=== PATIENT | female | born 1950 | race Caucasian/White ===

== ENCOUNTER 2016-03-30 12:59 | Emergency (ER) | payer MEDICARE, BC ==
[2016-03-30 13:07] VITALS: BP 140/83; RESP 30; TEMP 97.8
--- NOTE | 2016-03-30 13:13 | ED ---
General Adult HPI - General Chief complaint: Recheck/Abnormal Lab/Rx Stated complaint: tremors Time Seen by Provider: 03/30/16 13:13 Source: patient, EMS, RN notes reviewed, old records reviewed Mode of arrival: EMS Limitations: no limitations - History of Present Illness Initial comments: This is a 65-year-old female her for evaluation. Patient presents today for evaluation of stress. Stress reaction, patient has significant history her mother's illness. Patient denies homicidal or suicidal. No history of seizure, patient with increased stress reaction, history obtained from EMS - Related Data Home Medications Medication Instructions Recorded Confirmed DULoxetine HCL [Cymbalta] 120 tab PO DAILY 10/14/14 03/30/16 Dextroamphetamine/Amphetamine 45 tab PO DAILY 10/14/14 03/30/16 [Adderall] Etodolac [Lodine] 400 mg PO BID 10/14/14 03/30/16 Minocycline [Minocin] 50 mg PO DIRECTED 10/14/14 03/30/16 traZODone HCL [Oleptro ER] 75 - 150 tab PO HS 10/14/14 03/30/16 ALPRAZolam [Xanax] 0.25 mg PO BID PRN 03/30/16 03/30/16 Gabapentin [Neurontin] 900 mg PO BID 03/30/16 03/30/16 Omeprazole [PriLOSEC] 20 mg PO AC-BRKFST 03/30/16 03/30/16 lamoTRIgine [LaMICtal] 25 mg PO BID 03/30/16 03/30/16 Allergies Allergy/AdvReac Type Severity Reaction Status Date / Time Iodinated Contrast Media - Allergy Unknown Verified 03/30/16 14:15 Oral and venom-wasp [wasp venom] AdvReac Rash/Hives Verified 03/30/16 14:15 Review of Systems ROS Statement: Those systems with pertinent positive or pertinent negative responses have been documented in the HPI. ROS Other: All systems not noted in ROS Statement are negative. Past Medical History Additional Past Medical History / Comment(s): closed head injury History of Any Multi-Drug Resistant Organisms: None Reported Past Surgical History: Joint Replacement Past Psychological History: ADD/ADHD, Anxiety, Depression Smoking Status: Never smoker Past Alcohol Use History: None Reported Past Drug Use History: None Reported General Exam Limitations: no limitations General appearance: anxious Head exam: Present: atraumatic, normocephalic, normal inspection Eye exam: Present: normal appearance, PERRL, EOMI. Absent: scleral icterus, conjunctival injection, periorbital swelling ENT exam: Present: normal exam, mucous membranes moist Neck exam: Present: normal inspection. Absent: tenderness, meningismus, lymphadenopathy Respiratory exam: Present: normal lung sounds bilaterally. Absent: respiratory distress, wheezes, rales, rhonchi, stridor Cardiovascular Exam: Present: regular rate, normal rhythm, normal heart sounds. Absent: systolic murmur, diastolic murmur, rubs, gallop, clicks GI/Abdominal exam: Present: soft, normal bowel sounds. Absent: distended, tenderness, guarding, rebound, rigid Extremities exam: Present: normal inspection, full ROM, normal capillary refill. Absent: tenderness, pedal edema, joint swelling, calf tenderness Back exam: Present: normal inspection Neurological exam: Present: alert, oriented X3, CN II-XII intact Psychiatric exam: Present: normal affect, normal mood Skin exam: Present: warm, dry, intact, normal color. Absent: rash Course Vital Signs 03/30/16 03/30/16 13:02 13:34 Temperature 97.8 F Pulse Rate 80 122 H Respiratory 30 H Rate Blood Pressure 140/83 O2 Sat by Pulse 96 Oximetry - Reevaluation(s) Reevaluation #1: 03/30/16 14:53 Spent greater than 15 minutes with patient, patient consulted regarding tremors and stress, Medical Decision Making - Medical Decision Making 65 female here for evaluation, has psychiatric history, patient coming in for evaluation of full-body course Wally, tremors or stopped with benzodiazepines at this time, patient's alert gabriela of conversation, not homicidal or suicidal okay for discharge home - Lab Data Lab Results 03/30/16 Range/Units 13:09 POC Glucose (mg/dL) 110 H (75-99) mg/dL POC Glu [employer] Lora Mahoney Disposition Clinical Impression: Tremors of nervous system, Grief Disposition: HOME SELF-CARE Condition: Good Instructions: Grief and Loss (ED), Tremors (ED) Referrals: Luiz Gifford MD [Primary Care Provider] - 1-2 days
[2016-03-30] MEDS ORDERED: LORazepam 2 MG/ML SYRINGE IV STA (13:15)
[2016-03-30] MEDS ORDERED: SODIUM CHLORIDE 0.9% 1,000 ML IV STA (13:15)
[2016-03-30 13:29] LABS: Glucose,Whole Blood 110 mg/dL (75-99)
[2016-03-30 13:34] VITALS: PULSE 122
[2016-03-30] MEDS ORDERED: DIAZEPAM 5 MG/ML 2 ML SYRINGE IVP STA (13:59)
== END 2016-03-30 15:55 | disposition home or self-care (01) ==
LOC: EC 12:59
DX: R25.1 Tremor, unspecified (principal); F43.21 Adjustment disorder with depressed mood; F41.9 Anxiety disorder, unspecified; F32.9 Major depressive disorder, single episode, unspecified; Z79.899 Other long term (current) drug therapy; Z91.041 Radiographic dye allergy status; F90.9 Attention-deficit hyperactivity disorder, unspecified type
CPT/HCPCS: 36415; 99284; 96374; 96375; 96361; J2060

== ENCOUNTER 2016-05-21 18:15 | Emergency (ER) | payer MEDICARE, BC ==
[2016-05-21 18:42] VITALS: TEMP 97.1
[2016-05-21] MEDS ORDERED: KETOROLAC 60 MG/2 ML VIAL IM STA (19:48)
[2016-05-21] MEDS ORDERED: LORazepam 1 MG TAB PO STA (19:48)
--- NOTE | 2016-05-21 20:09 | ED ---
Skin/Abscess/FB HPI - General Chief complaint: Skin/Abscess/Foreign Body Stated complaint: pain, Shingles,tingling Time Seen by Provider: 05/21/16 19:25 Source: family, RN notes reviewed Mode of arrival: wheelchair Limitations: no limitations - History of Present Illness Initial comments: 64-year-old female presents to the emergency department with a chief complaint of anxiety. The patient developed shingles about a week and a half ago. Patient states that she has continued to have pain over the area where the shingles was it's a burning type pain. Patient states that she is out of her pain medication. Patient states that she also has developed some neck discomfort associated with this as well. Patient states that for the shingles. Did have a fall where she hit her neck she is wondering if maybe that for neck pain is from [place] is just related to the shingles. Patient has been diagnosed with anxiety past does have a lot of stressors daily as well. Patient states she just did not know where else to go to help with her anxiety and this pain so she thought that she should be evaluated.Patient denies any recent fever, chills, shortness of breath, chest pain, back pain, abdominal pain , nausea vomiting, numbness or tingling, dysuria or hematuria, constipation or diarrhea, headaches or visual changes, or any other current symptoms. - Related Data Home Medications Medication Instructions Recorded Confirmed DULoxetine HCL [Cymbalta] 120 tab PO DAILY 10/14/14 05/21/16 Dextroamphetamine/Amphetamine 45 tab PO DAILY 10/14/14 05/21/16 [Adderall] Etodolac [Lodine] 400 mg PO BID 10/14/14 05/21/16 traZODone HCL [Oleptro ER] 75 - 150 tab PO HS 10/14/14 05/21/16 ALPRAZolam [Xanax] 0.25 mg PO BID PRN 03/30/16 05/21/16 Gabapentin [Neurontin] 900 mg PO BID 03/30/16 05/21/16 Omeprazole [PriLOSEC] 20 mg PO AC-BRKFST 03/30/16 05/21/16 lamoTRIgine [LaMICtal] 25 mg PO BID 03/30/16 05/21/16 Cyclobenzaprine [Flexeril] 10 mg PO DAILY PRN 05/21/16 05/21/16 Previous Rx's Medication Instructions Recorded Hydrocodone/Acetaminophen [Tumtum 1 each PO Q6HR PRN #20 tab 05/21/16 5-325] Allergies Allergy/AdvReac Type Severity Reaction Status Date / Time Iodinated Contrast Media - Allergy Unknown Verified 05/21/16 19:39 Oral and venom-wasp [wasp venom] AdvReac Rash/Hives Verified 05/21/16 19:39 Review of Systems ROS Statement: Those systems with pertinent positive or pertinent negative responses have been documented in the HPI. ROS Other: All systems not noted in ROS Statement are negative. Past Medical History Additional Past Medical History / Comment(s): closed head injury, shingles History of Any Multi-Drug Resistant Organisms: None Reported Past Surgical History: Joint Replacement Past Psychological History: ADD/ADHD, Anxiety, Depression, Panic Disorder Smoking Status: Never smoker Past Alcohol Use History: None Reported Past Drug Use History: None Reported General Exam Limitations: no limitations General appearance: alert, anxious Head exam: Present: atraumatic, normocephalic, normal inspection Eye exam: Present: normal appearance, PERRL, EOMI. Absent: scleral icterus, conjunctival injection, periorbital swelling ENT exam: Present: normal exam, mucous membranes moist Neck exam: Present: normal inspection. Absent: tenderness, meningismus, lymphadenopathy Respiratory exam: Present: normal lung sounds bilaterally. Absent: respiratory distress, wheezes, rales, rhonchi, stridor Cardiovascular Exam: Present: regular rate, normal rhythm, normal heart sounds. Absent: systolic murmur, diastolic murmur, rubs, gallop, clicks Extremities exam: Present: normal inspection, full ROM, normal capillary refill. Absent: tenderness, pedal edema, joint swelling, calf tenderness Back exam: Present: normal inspection Neurological exam: Present: alert, oriented X3, CN II-XII intact. Absent: motor sensory deficit Psychiatric exam: Present: anxious Skin exam: Present: warm, dry, intact, other (Healing line of blisters most likely related to shingles observed.) Course Vital Signs 05/21/16 05/21/16 18:36 23:57 Temperature 97.1 F L Pulse Rate 106 H 89 Respiratory 22 16 Rate Blood Pressure 120/67 131/70 O2 Sat by Pulse 100 99 Oximetry - Reevaluation(s) Reevaluation #1: 05/21/16 21:37 On further conversation with the pain she states that she has not been able to be out of bed very often for the last 2 days. She states she's not been eating well. She's not been caring for her. At this time patient continues to be anxious and family member states that this has been ever since she heard the news about her mother. At this time we will have psych evaluate the patient. Medical Decision Making - Medical Decision Making 65-year-old female presents with what appears to be anxiety coupled with pain. At this patient just does not seem to be caring for self patient appears to be in severe anxiety. At this time patient does not appear to Making medical emergencies. This time patient is cleared to be evaluated by psychiatry. Patient was evaluated by psychiatry here. At this time she is discharged home with follow-up with her psychiatrist Dr. Lopez. We did discuss continuing home medications. We do give her something for her discomfort. Patient in agreement with the plan. All questions have been answered. She'll be discharged. - Radiology Data Radiology results: report reviewed, image reviewed Disposition Clinical Impression: Anxiety, Herpes zoster complication, Left axillary pain Disposition: HOME SELF-CARE Condition: Stable Instructions: Anxiety (ED) Additional Instructions: Please use medication as discussed. Please follow up with family doctor if symptoms have not improved over the next two days. Please return to the emergency room if your symptoms increase or worsen or for any other concerns. Prescriptions: Hydrocodone/Acetaminophen [Tumtum 5-325] 1 each PO Q6HR PRN #20 tab PRN Reason: Pain Referrals: Luiz Gifford MD [Primary Care Provider] - 1-2 days Tj Meyer DO [Medical Doctor] - 1-2 days Time of Disposition: 23:59
[2016-05-21] MEDS: HYDROcodone/APAP 5-325MG 1 EACH TAB PO STA ×2 (20:29→20:37)
--- NOTE | 2016-05-21 21:19 | CT ---
EXAMINATION TYPE: CT cervical spine wo con DATE OF EXAM: 05/21/2016 9:06 PM COMPARISON: NONE HISTORY: PT STATES OF NECK PAIN AND LEFT ARM NUMBNESS. CT DLP: 364.0 mGycm Automated exposure control for dose reduction was used. TECHNIQUE: CT scan of the cervical spine is obtained without contrast, axial images are obtained, sa gittal and coronal reformatted images are also reviewed. FINDINGS: The cervical vertebra have normal alignment. There is degenerative disc space narrowing in the mid and lower cervical spine with spurring of the endplates. There is hypertrophic facet arthropa thy throughout the cervical spine. Posterior elements are intact. The skull base is intact. There is no evidence for fracture. IMPRESSION: Multilevel spondylosis. No fracture seen.
[2016-05-21 23:57] VITALS: BP 131/70; PULSE 89; RESP 16
== END 2016-05-22 00:05 | disposition home or self-care (01) ==
LOC: EC 18:15
DX: B02.8 Zoster with other complications (principal); M79.622 Pain in left upper arm; F41.0 Panic disorder [episodic paroxysmal anxiety]; F90.9 Attention-deficit hyperactivity disorder, unspecified type; F32.9 Major depressive disorder, single episode, unspecified; Z53.20 Procedure and treatment not carried out because of patient's decision for unspecified reasons; Z79.899 Other long term (current) drug therapy; Z91.038 Other insect allergy status; Z91.041 Radiographic dye allergy status
CPT/HCPCS: 72125; 99283

== ENCOUNTER 2016-08-21 17:07 | Inpatient (IN) | payer MEDICARE, BC ==
[2016-08-21] MEDS ORDERED: ACETAMINOPHEN TAB 500 MG TAB PO STA (17:54)
[2016-08-21] MEDS ORDERED: LORazepam 1 MG TAB PO STA (17:55)
--- NOTE | 2016-08-21 17:57 | ED ---
General Adult HPI - General Source: patient, EMS, RN notes reviewed Mode of arrival: EMS Limitations: no limitations <Hollis Sneed - Last Filed: 08/21/16 19:21> <Hollis Conley - Last Filed: 08/22/16 00:23> - General Chief complaint: Psychiatric Symptoms Stated complaint: Mental Health Time Seen by Provider: 08/21/16 17:10 - History of Present Illness Initial comments: This is a 66-year-old female who presents emergency Department under a petition because she made some remark about wanting to take finals and it was interpreted that she wanted to harm her self. Sister told someone that she did threaten recently to cut her throat. Patient states she made that statement over a month ago and she was just frustrated and didn't really mean it. Patient denies any suicidal or homicidal ideations. Patient states she's just extremely upset because she is not currently being allowed to see her 97-year- old mother and no one is helping her. Patient also has a fever but she doesn't know why she states she has a cough but that is been chronic patient denies any difficulty breathing or shortness of breath. Patient denies any skin lesions or rashes. Patient denies any dysuria hematuria urinary frequency. Patient denies any abdominal pain patient denies nausea vomiting or diarrhea. (Hollis Sneed) - Related Data Home Medications Medication Instructions Recorded Confirmed DULoxetine HCL [Cymbalta] 120 tab PO DAILY 10/14/14 08/21/16 Dextroamphetamine/Amphetamine 30 mg PO BID 10/14/14 08/21/16 [Adderall] Etodolac [Lodine] 400 mg PO AC-BID 10/14/14 08/21/16 ALPRAZolam [Xanax] 0.25 mg PO BID PRN 03/30/16 08/21/16 Gabapentin [Neurontin] 600 mg PO TID 03/30/16 08/21/16 Omeprazole [PriLOSEC] 20 mg PO AC-BRKFST 03/30/16 08/21/16 Minocycline HCl [Minocin] 50 mg PO DAILY 08/21/16 08/21/16 traZODone HCL 150 mg PO HS 08/21/16 08/21/16 Allergies Allergy/AdvReac Type Severity Reaction Status Date / Time Iodinated Contrast Media - Allergy Unknown Verified 08/21/16 17:16 Oral and venom-wasp [wasp venom] AdvReac Rash/Hives Verified 08/21/16 17:16 Review of Systems ROS Other: All systems not noted in ROS Statement are negative. <SneedHollis - Last Filed: 08/21/16 19:21> ROS Other: All systems not noted in ROS Statement are negative. <Hollis Conley - Last Filed: 08/22/16 00:23> ROS Statement: Those systems with pertinent positive or pertinent negative responses have been documented in the HPI. Past Medical History Additional Past Medical History / Comment(s): closed head injury, shingles History of Any Multi-Drug Resistant Organisms: None Reported Past Surgical History: Joint Replacement Past Psychological History: ADD/ADHD, Anxiety, Depression, Panic Disorder, PTSD Smoking Status: Never smoker Past Alcohol Use History: None Reported Past Drug Use History: None Reported <Hollis Sneed - Last Filed: 08/21/16 19:21> General Exam Limitations: no limitations <Hollis Sneed - Last Filed: 08/21/16 19:21> <Hollis Conley - Last Filed: 08/22/16 00:23> - General Exam Comments Initial Comments: GENERAL: Patient is well-developed and well-nourished. Patient is nontoxic and well- hydrated and is in no acute distress. ENT: Neck is soft and supple. No significant lymphadenopathy is noted. Oropharynx is clear. Moist mucous membranes. Neck has full range of motion without eliciting any pain. EYES: The sclera were anicteric and conjunctiva were pink and moist. Extraocular movements were intact and pupils were equal round and reactive to light. Eyelids were unremarkable. PULMONARY: Unlabored respirations. Good breath sounds bilaterally. No audible rales rhonchi or wheezing was noted. CARDIOVASCULAR: There is a regular rate and rhythm without any murmurs gallops or rubs. ABDOMEN: Soft and nontender with normal bowel sounds. No palpable organomegaly was noted. There is no palpable pulsatile mass. SKIN: Skin is clear with no lesions or rashes and otherwise unremarkable. NEUROLOGIC: Patient is alert and oriented x3. Cranial nerves II through XII are grossly intact. Motor and sensory are also intact. Normal speech, volume and content. Symmetrical smile. Cerebellar exam grossly intact. MUSCULOSKELETAL: Normal extremities with adequate strength and full range of motion. No lower extremity swelling or edema. No calf tenderness. LYMPHATICS: No significant lymphadenopathy is noted PSYCHIATRIC: Patient denies suicidal or homicidal ideations. Patient is just agitated at this time and upset because she wants to see her mother and this is just getting in the way of her moving in that direction. (Hollis Sneed) Course <Hollis Sneed - Last Filed: 08/21/16 19:21> <Hollis Conley - Last Filed: 08/22/16 00:23> Vital Signs 08/21/16 08/21/16 08/21/16 17:10 20:21 23:58 Temperature 101.3 F H 99.5 F 99.3 F Pulse Rate 105 H 116 H 110 H Respiratory 18 18 18 Rate Blood Pressure 147/78 116/53 139/71 O2 Sat by Pulse 96 99 97 Oximetry - Reevaluation(s) Reevaluation #1: 08/22/16 00:22 Patient medically clear for psychiatric evaluation lab work x-ray are negative ( Hollis Conley) Medical Decision Making <Hollis Sneed - Last Filed: 08/21/16 19:21> - Lab Data Result diagrams: 08/21/16 20:13 08/21/16 20:13 - Radiology Data Radiology results: report reviewed (Chest x-ray is negative for acute disease), image reviewed <Hollis Conley - Last Filed: 08/22/16 00:23> - Medical Decision Making Patient's care will be taking over by Dr. Chapman At 7 PM (Hollis Sneed) 62 for female seen and evaluated by psychiatry, patient will be admitted for psychiatric evaluation and treatment (Hollis Conley) - Lab Data Lab Results 08/21/16 08/21/16 08/21/16 Range/Units 17:21 20:13 20:13 WBC (3.8-10.6) k/uL RBC (3.80-5.40) m/uL Hgb (11.4-16.0) gm/dL Hct (34.0-46.0) % MCV (80.0-100.0) fL MCH (25.0-35.0) pg MCHC (31.0-37.0) g/dL RDW (11.5-15.5) % Plt Count (150-450) k/uL Neutrophils % % Lymphocytes % % Monocytes % % Eosinophils % % Basophils % % Neutrophils # (1.3-7.7) k/uL Lymphocytes # (1.0-4.8) k/uL Monocytes # (0-1.0) k/uL Eosinophils # (0-0.7) k/uL Basophils # (0-0.2) k/uL Sodium 140 (137-145) mmol/L Potassium 3.7 (3.5-5.1) mmol/L Chloride 107 (98-107) mmol/L Carbon Dioxide 22 (22-30) mmol/L Anion Gap 11 mmol/L BUN 17 (7-17) mg/dL Creatinine 0.95 (0.52-1.04) mg/dL Est GFR (MDRD) Af Amer >60 (>60 ml/min/1.73 sqM) Est GFR (MDRD) Non-Af 59 (>60 ml/min/1.73 sqM) Glucose 108 H (74-99) mg/dL Calcium 9.4 (8.4-10.2) mg/dL Phosphorus 3.0 (2.5-4.5) mg/dL Magnesium 2.1 (1.6-2.3) mg/dL Total Bilirubin 1.0 (0.2-1.3) mg/dL AST 20 (14-36) U/L ALT 13 (9-52) U/L Alkaline Phosphatase 96 (38-126) U/L Total Creatine Kinase 57 (30-135) U/L CK-MB (CK-2) 0.7 (0.0-2.4) ng/mL CK-MB (CK-2) Rel Index 1.2 Total Protein 6.4 (6.3-8.2) g/dL Albumin 3.7 (3.5-5.0) g/dL Urine Color Yellow Urine Appearance Clear (Clear) Urine pH 5.5 (5.0-8.0) Ur Specific [place] 1.022 (1.001-1.035) Urine Protein Trace H (Negative) Urine Glucose (UA) Negative (Negative) Urine Ketones 1+ H (Negative) Urine Blood Negative (Negative) Urine Nitrite Negative (Negative) Urine Bilirubin 4+ H (Negative) Urine Urobilinogen 2.0 (<2.0) mg/dL Ur Leukocyte Esterase Small H (Negative) Urine RBC 1 (0-5) /hpf Urine WBC 4 (0-5) /hpf Ur Squamous Epith Cells 1 (0-4) /hpf Urine Bacteria Rare H (None) /hpf Urine Mucus Occasional H (None) /hpf Salicylates <1.0 mg/dL Urine Opiates Screen Not Detected (NotDetected) Ur Oxycodone Screen Not Detected (NotDetected) Urine Methadone Screen Not Detected (NotDetected) Ur Propoxyphene Screen Not Detected (NotDetected) Acetaminophen <10.0 ug/mL Ur Barbiturates Screen Not Detected (NotDetected) U Tricyclic Antidepress Not Detected (NotDetected) Ur Phencyclidine Scrn Not Detected (NotDetected) Ur Amphetamines Screen Detected H (NotDetected) U Methamphetamines Scrn Not Detected (NotDetected) U Benzodiazepines Scrn Not Detected (NotDetected) Urine Cocaine Screen Not Detected (NotDetected) U Marijuana (THC) Screen Not Detected (NotDetected) Serum Alcohol <10 mg/dL 08/21/16 Range/Units 20:13 WBC 4.8 (3.8-10.6) k/uL RBC 4.42 (3.80-5.40) m/uL Hgb 14.1 (11.4-16.0) gm/dL Hct 40.5 (34.0-46.0) % MCV 91.6 (80.0-100.0) fL MCH 31.9 (25.0-35.0) pg MCHC 34.9 (31.0-37.0) g/dL RDW 13.2 (11.5-15.5) % Plt Count 225 (150-450) k/uL Neutrophils % 55 % Lymphocytes % 36 % Monocytes % 7 % Eosinophils % 1 % Basophils % 1 % Neutrophils # 2.6 (1.3-7.7) k/uL Lymphocytes # 1.7 (1.0-4.8) k/uL Monocytes # 0.3 (0-1.0) k/uL Eosinophils # 0.0 (0-0.7) k/uL Basophils # 0.0 (0-0.2) k/uL Sodium (137-145) mmol/L Potassium (3.5-5.1) mmol/L Chloride (98-107) mmol/L Carbon Dioxide (22-30) mmol/L Anion Gap mmol/L BUN (7-17) mg/dL Creatinine (0.52-1.04) mg/dL Est GFR (MDRD) Af Amer (>60 ml/min/1.73 sqM) Est GFR (MDRD) Non-Af (>60 ml/min/1.73 sqM) Glucose (74-99) mg/dL Calcium (8.4-10.2) mg/dL Phosphorus (2.5-4.5) mg/dL Magnesium (1.6-2.3) mg/dL Total Bilirubin (0.2-1.3) mg/dL AST (14-36) U/L ALT (9-52) U/L Alkaline Phosphatase (38-126) U/L Total Creatine Kinase (30-135) U/L CK-MB (CK-2) (0.0-2.4) ng/mL CK-MB (CK-2) Rel Index Total Protein (6.3-8.2) g/dL Albumin (3.5-5.0) g/dL Urine Color Urine Appearance (Clear) Urine pH (5.0-8.0) Ur Specific [place] (1.001-1.035) Urine Protein (Negative) Urine Glucose (UA) (Negative) Urine Ketones (Negative) Urine Blood (Negative) Urine Nitrite (Negative) Urine Bilirubin (Negative) Urine Urobilinogen (<2.0) mg/dL Ur Leukocyte Esterase (Negative) Urine RBC (0-5) /hpf Urine WBC (0-5) /hpf Ur Squamous Epith Cells (0-4) /hpf Urine Bacteria (None) /hpf Urine Mucus (None) /hpf Salicylates mg/dL Urine Opiates Screen (NotDetected) Ur Oxycodone Screen (NotDetected) Urine Methadone Screen (NotDetected) Ur Propoxyphene Screen (NotDetected) Acetaminophen ug/mL Ur Barbiturates Screen (NotDetected) U Tricyclic Antidepress (NotDetected) Ur Phencyclidine Scrn (NotDetected) Ur Amphetamines Screen (NotDetected) U Methamphetamines Scrn (NotDetected) U Benzodiazepines Scrn (NotDetected) Urine Cocaine Screen (NotDetected) U Marijuana (THC) Screen (NotDetected) Serum Alcohol mg/dL Disposition <Hollis Sneed - Last Filed: 08/21/16 19:21> <Hollis Conley - Last Filed: 08/22/16 00:23> Clinical Impression: Depression, Suicidal ideation Disposition: TRANSFER TO PSYCH HOSP/UNIT Condition: Fair Referrals: Luiz Gifford MD [Primary Care Provider] - 1-2 days
--- NOTE | 2016-08-21 18:13 | XR ---
EXAMINATION TYPE: XR chest 2V DATE OF EXAM: 08/21/2016 COMPARISON: NONE HISTORY: Fever TECHNIQUE: Frontal and lateral views of the chest are obtained. FINDINGS: Heart and mediastinum are normal. Lungs are clear. Diaphragm is normal. Bony thorax is int act. IMPRESSION: Normal chest
[2016-08-21 18:50] LABS: Appearance,Urine Clear (Clear); Bacteria,Urine Rare /hpf; Bilirubin,Urine 4+ (Negative); Glucose,Urine (UA) Negative (Negative); Ketones,Urine 1+ (Negative); Leukocyte Esterase,Urine Small (Negative); Mucus,Urine Occasional /hpf; Nitrite,Urine Negative (Negative); PH, Urine 5.5 (5.0-8.0); Particle Count 4893; Protein,Urine Trace (Negative); RBC,Urine 1 /hpf (0-5); Specific Gravity,Urine 1.022 (1.001-1.035); Squamous Epithelial Cell,Urine 1 /hpf (0-4); UA Billing (MACRO vs. MICRO) MICRO; WBC,Urine 4 /hpf (0-5)
[2016-08-21 20:27] LABS: Basophils % (A) 1 %; Eosinophils % (A) 1 %; HCT 40.5 % (34.0-46.0); HDW 2.14; HGB 14.1 gm/dL (11.4-16.0); Luc # (Auto) 0.08; Luc % (Auto) 2; Lymphocytes # (A) 1.7 k/uL (1.0-4.8); Lymphocytes % (A) 36 %; MCH 31.9 pg (25.0-35.0); MCHC 34.9 g/dL (31.0-37.0); MCV 91.6 fL (80.0-100.0); Mean Platelet Volume 8.5; Monocytes # (A) 0.3 k/uL (0-1.0); Monocytes % (A) 7 %; Neutrophils # (A) 2.6 k/uL (1.3-7.7); Neutrophils % (A) 55 %; RBC 4.42 m/uL (3.80-5.40); RDW 13.2 % (11.5-15.5); WBC 4.8 k/uL (3.8-10.6); WBC (Perox) 4.71
[2016-08-21 20:38] LABS: ALT 13 U/L (9-52); AST 20 U/L (14-36); Acetaminophen <10.0 ug/mL; Alcohol <10 mg/dL; Alkaline Phosphatase 96 U/L (38-126); Anion Gap 11 mmol/L; Blood Urea Nitrogen 17 mg/dL (7-17); Calcium 9.4 mg/dL (8.4-10.2); Carbon Dioxide 22 mmol/L (22-30); Chloride 107 mmol/L (98-107); Glucose 108 mg/dL (74-99); Magnesium 2.1 mg/dL (1.6-2.3); Non-African American GFR(MDRD) 59 (>60 ml/min/1.73 sqM); Potassium 3.7 mmol/L (3.5-5.1); Salicylate <1.0 mg/dL; Sodium 140 mmol/L (137-145); Total Protein 6.4 g/dL (6.3-8.2)
[2016-08-21 20:55] LABS: Creatine Kinase MB 0.7 ng/mL (0.0-2.4)
[2016-08-22] MEDS ORDERED: CYCLOBENZAPRINE 10 MG TAB PO STA
[2016-08-22] MEDS ORDERED: MAGNESIUM HYDROXIDE 2,400 MG/10 ML CUP PO PRN (02:30)
[2016-08-22] MEDS ORDERED: MAG HYDROX/AL HYDROX/SIMETH 30 ML CUP PO PRN (02:30)
[2016-08-22] MEDS: OLANZapine ODT 5 MG TAB PO PRN ×3 (02:46→18:25)
[2016-08-22] MEDS: LORazepam 1 MG TAB PO PRN ×3 (02:47→18:25)
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
--- NOTE | 2016-08-22 13:23 | P.MDCNMH ---
History of Present Illness H&P Date: 08/22/16 Chief Complaint: Medical management This is a 66-year-old female patient of Dr. Gifford with a past medical history of gastroesophageal reflux disease, ADHD, closed head injury, shingles, anxiety, depression and PTSD. Patient gives history that she has had ongoing difficulty taking care of her mother who is 97 years old with dementia and is living in an adult foster senior living. She has been following with Dr. Gifford and has been experiencing sweats throughout the winter time and also rapid heartbeat for which she had a Holter monitor. Patient passed on to nursing staff that she was on metoprolol which is not on her list of medications. Patient also states that she had trouble with stumbling and coordination and went to see Dr. Sanchez and was diagnosed with serotonin syndrome. Her trazodone was apparently decreased from 75 mg to [address] Sanchez also placed her on melatonin for sleep and she's been taking that for 3 nights without any improvement. She states she does not sleep without trazodone. Patient also complains of abdominal pain that's been going on for one year. She states she last saw Dr. Randall last week and she did have a slight fever when she was in the office. She is complaining of cough which is chronic. She denies any shortness of breath. She denies any nausea vomiting or diarrhea. She denies any dysuria. She came into [facility] emergency center on petition for suicidal ideation. Patient states that she has been depressed but denies any suicidal thoughts. Chest x-ray was normal. She had a temperature 101.8 and pulse of 116, CPK 57. White count was normal. Urine drug screen was positive for amphetamines. Salicylate level, acetaminophen and alcohol levels were normal. Patient has been admitted to the mental health unit. Patient continues to be tachycardic and will be started on low dose beta levon. Review of Systems All systems: negative Constitutional: Denies chills, Denies fever Eyes: denies blurred vision, denies pain Ears, nose, mouth and throat: Denies headache, Denies sore throat Cardiovascular: Denies chest pain, Denies shortness of breath Respiratory: Denies cough Gastrointestinal: Denies abdominal pain, Denies diarrhea, Denies nausea, Denies vomiting Genitourinary: Denies dysuria, Denies hematuria Musculoskeletal: Denies myalgias Integumentary: Denies pruritus, Denies rash Neurological: Denies numbness, Denies weakness Psychiatric: Reports depression, Denies anxiety, Denies suicidal ideation Endocrine: Denies fatigue, Denies weight change Past Medical History Additional Past Medical History / Comment(s): closed head injury, shingles History of Any Multi-Drug Resistant Organisms: None Reported Past Surgical History: Joint Replacement Additional Past Surgical History / Comment(s): Left knee arthroplasty Past Psychological History: ADD/ADHD, Anxiety, Depression, Panic Disorder, PTSD Smoking Status: Never smoker Past Alcohol Use History: None Reported Additional Past Alcohol Use History / Comment(s): Patient states that she is a lifelong nonsmoker. She denies any medical marijuana, marijuana, street drug or alcohol use. Past Drug Use History: None Reported - Past Family History Father Additional Family Medical History / Comment(s): Father at age 86 from COPD. Mother Additional Family Medical History / Comment(s): Mother is alive at age 97 with dementia. Brother(s) Additional Family Medical History / Comment(s): Patient has 1 brother and 2 sisters and does not know their medical history. Medications and Allergies Home Medications Medication Instructions Recorded Confirmed Type DULoxetine HCL [Cymbalta] 120 tab PO DAILY 10/14/14 08/21/16 History Dextroamphetamine/Amphetamine 30 mg PO BID 10/14/14 08/21/16 History [Adderall] Etodolac [Lodine] 400 mg PO AC-BID 10/14/14 08/21/16 History ALPRAZolam [Xanax] 0.25 mg PO BID PRN 03/30/16 08/21/16 History Gabapentin [Neurontin] 600 mg PO TID 03/30/16 08/21/16 History Omeprazole [PriLOSEC] 20 mg PO AC-BRKFST 03/30/16 08/21/16 History Minocycline HCl [Minocin] 50 mg PO DAILY 08/21/16 08/21/16 History traZODone HCL 150 mg PO HS 08/21/16 08/21/16 History Allergies Allergy/AdvReac Type Severity Reaction Status Date / Time Iodinated Contrast Media - Allergy Unknown Verified 08/21/16 17:16 Oral and venom-wasp [wasp venom] AdvReac Rash/Hives Verified 08/21/16 17:16 Physical Exam Vitals: Vital Signs Temp Pulse Pulse Resp BP BP Pulse Ox 08/22/16 05:47 97.7 F 96 18 115/66 100 08/21/16 23:58 99.3 F 110 H 18 139/71 97 08/21/16 20:21 99.5 F 116 H 18 116/53 99 08/21/16 17:10 101.3 F H 105 H 18 147/78 96 Intake and Output 08/21/16 08/22/16 08/22/16 22:59 06:59 14:59 Other: Weight 85.275 kg Gen: This is a 66-year-old female. She is cooperative but defensive and angry during evaluation when talking about the difficulty she's had taking care of her mother. HEENT: Head is atraumatic, normocephalic. Pupils equal, round. Sclerae is anicteric. NECK: Supple. No JVD. No lymphadenopathy. No thyromegaly. LUNGS: Clear to auscultation. No wheezes or rhonchi. No intercostal retractions. HEART: Regular rate and rhythm. No murmur. ABDOMEN: Soft. Bowel sounds are present. No masses. No tenderness. EXTREMITIES: No pedal edema. No calf tenderness. NEUROLOGICAL: Patient is awake, alert and oriented x3. Cranial nerves 2 through 12 are grossly intact. Cranial Nerve Examination - Cranial Nerves Cranial Nerve II- Optic: Intact Cranial Nerve III- Oculomotor: Intact Cranial Nerve IV- Trochlear: Intact Cranial Nerve V- Trigeminal: Intact Cranial Nerve - Abducens: Intact Cranial Nerve VII- Facial: Intact Cranial Nerve VIII- Auditory: Intact Cranial Nerve IX- Glossopharyngeal: Intact Cranial Nerve X- Vagus: Intact Cranial Nerve XI- Accessory: Intact Cranial Nerve XII- Hypoglossal: Intact Results CBC & Chem 7: 08/21/16 20:13 08/21/16 20:13 Labs: Abnormal Lab Results - Last 24 Hours (Table) 08/21/16 08/21/16 Range/Units 17:21 20:13 Glucose 108 H (74-99) mg/dL Urine Protein Trace H (Negative) Urine Ketones 1+ H (Negative) Urine Bilirubin 4+ H (Negative) Ur Leukocyte Esterase Small H (Negative) Urine Bacteria Rare H (None) /hpf Urine Mucus Occasional H (None) /hpf Ur Amphetamines Screen Detected H (NotDetected) Assessment and Plan Plan: 1. Recurrent depression. Patient admitted to the mental health unit. Continue current plan of care. 2. Gastroesophageal reflux disease. Continue Prilosec 3. Fever secondary to serotonin syndrome. Continue to monitor. 4. Sinus tachycardia. Patient will be placed on low-dose beta levon metoprolol 12.5 mg twice daily. 5. Peripheral neuropathy. Continue gabapentin 600 mg 3 times daily. Impression and plan of care have been directed as dictated by the signing physician. Yahaira Galeas nurse practitioner acting as scribe for signing physician.
[2016-08-22 15:44] LABS: Vitamin B12 711 pg/mL (239-931)
[2016-08-22] MEDS: METOPROLOL TARTRATE 12.5 MG TAB PO SCH ×2 (15:55→21:51)
[2016-08-22] MEDS: GABAPENTIN 300 MG CAP PO SCH ×3 (16:28→21:51)
[2016-08-22] MEDS: MELATONIN 5 MG TABLET PO SCH (21:51)
[2016-08-23 08:48] LABS: CH 30.6; CHCM 33.3; HCT 39.6 % (34.0-46.0); HDW 2.13; HGB 13.3 gm/dL (11.4-16.0); MCH 31.2 pg (25.0-35.0); MCHC 33.7 g/dL (31.0-37.0); MCV 92.5 fL (80.0-100.0); Mean Platelet Volume 8.3; RBC 4.28 m/uL (3.80-5.40); RDW 13.3 % (11.5-15.5); WBC 3.4 k/uL (3.8-10.6)
--- NOTE | 2016-08-23 09:44 | ECHOF ---
Referral Reason:vegetation MEASUREMENTS -------- HEIGHT: 180.3 cm WEIGHT: 85.3 kg BP: RVIDd: 3.1 cm (< 3.3) IVSd: 1.1 cm (0.6 - 1.1) LVIDd: 3.5 cm (3.9 - 5.3) LVPWd: 1.4 cm (0.6 - 1.1) IVSs: 1.6 cm LVIDs: 1.9 cm LVPWs: 2.0 cm Ao Diam: 3.3 cm (2.0 - 3.7) AV Cusp: 2.0 cm (1.5 - 2.6) LA Diam: 2.9 cm (2.7 - 3.8) MV EXCURSION: 19.089 mm (> 18.000) MV EF SLOPE: 81 mm/s (70 - 150) EPSS: 0.3 cm MV E Obdulio: 0.48 m/s MV DecT: 143 ms MV A Obdulio: 0.83 m/s MV E/A Ratio: 0.58 RAP: 5.00 mmHg RVSP: 20.23 mmHg FINDINGS -------- Sinus rhythm. This was a technically good study. There is borderline concentric left ventricular hypertrophy. Overall left ventricular systolic function is normal with, an EF between 55 - 60 %. The right ventricle is normal in size and function. The left atrium is normal in size. The right atrium is normal in size. The aortic valve is trileaflet, and appears structurally normal. No aortic stenosis or regurgitation. The mitral valve leaflets are mildly thickened. Mild mitral regurgitation is present. Mild tricuspid regurgitation present. The right ventricular systolic pressure, as measured by Doppler, is 20.23mmHg. Pulmonic valve appears structurally normal. The aortic root size is normal. The pericardium is normal. CONCLUSIONS -------- 1. Sinus rhythm. 2. Mild mitral regurgitation is present. 3. Mild tricuspid regurgitation present. 4. The right ventricular systolic pressure, as measured by Doppler, is 20.23mmHg. 5. Pulmonic valve appears structurally normal. 6. The aortic root size is normal. 7. The pericardium is normal. 8. This was a technically good study. 9. There is borderline concentric left ventricular hypertrophy. 10. Overall left ventricular systolic function is normal with, an EF between 55 - 60 %. 11. The right ventricle is normal in size and function. 12. The left atrium is normal in size. 13. The right atrium is normal in size. 14. The aortic valve is trileaflet, and appears structurally normal. No aortic stenosis or regurgitation. 15. The mitral valve leaflets are mildly thickened. HANDLE LATHE OPERATOR: Sandy Quick RDCS
[2016-08-23] MEDS: METOPROLOL TARTRATE 12.5 MG TAB PO SCH ×2 (10:20→20:27)
[2016-08-23] MEDS: GABAPENTIN 300 MG CAP PO SCH ×3 (10:20→20:27)
[2016-08-23] MEDS: ACETAMINOPHEN TAB 325 MG TAB PO PRN ×2 (13:14→20:30)
[2016-08-23] MEDS: LORazepam 1 MG TAB PO PRN (13:14)
[2016-08-23] MEDS ORDERED: ASPIRIN-ACET-CAFF 250-250-65MG 1 EACH TAB PO PRN (13:29)
--- NOTE | 2016-08-23 17:21 | P.PN ---
Progress Note - Text Date of service: 08/23/2016 Chief complaint: "I have migraine" Subjective: The patient has been seen today as follow-up, chart reviewed, case discussed with the treatment team. Patient was seen today at her room because she claimed were not able to come up due to severe migraine. Patient reported feeling sick and she chooses not to eat because she is worried about nausea and vomiting. Patient stated she used to have nausea and vomiting with migraine. Patient stated that she feels "pissed off" due to been admitted and she is very frustrated. Patient continued to be very argumentative with very low frustration tolerance and easily agitated. She addressed multiple factors that increased her irritability and agitation including staff don't listen to her, making noise during the night, and feels nobody cares. Patient denies suicidal or homicidal ideation, plan, or intention. She reports poor sleep due to noise by the staff. Patient continued to refuse considering any mood stabilizer as a treatment for irritability and agitation. She continued to express anger and the whole system and at the outpatient psychiatrist because he couldn't immediately address symptoms of what she claimed serotonin syndrome. Patient is still hyper verbal, loud, with circumstantial thought process. Even patient denies feeling paranoid but she continued to exhibit paranoid behavior and "everybody is against me". The patient denies any auditory or visual hallucinations. Review of other systems: Patient denies any physical symptoms besides what has been mentioned above. No breathing problems, no chest pain reported today. Objective: Vitals has been reviewed. Mental status examination; Appearance: The patient appears very agitated and angry and disheveled, no specific features. Gait/posture: Normal gait and posture, Normal arm was swinging: No abnormal movements. Attitude and behavior: Argumentative, not engaged, not cooperative, intermittent and staring eye contact. Motor activity: Increased psychomotor activity Speech: Loud, hyper verbal Mood: Agitated Affect: Full Thought form: Circumstantial, fixated, but coherent. Thought content: Not delusional, paranoid, preoccupied with the world is not fair and nobody likes her. She denies suicidal thoughts. Perception: Denies any auditory or visual hallucinations Attention: No impairment. Orientation: Patient was oriented to time place person and situation. Insight: Patient has limited insight about his psychiatric disorder. Judgment: Patient has limited judgment about his psychiatric treatment. Assessment: Unspecified mood disorder. Rule out Unspecified personality disorder. Rule out bipolar disorder. Plan: Patient continued to refuse to try any mood stabilizer. Will continue with home medications Cymbalta 120mg PO daily for depression and anxiety change Neurontin 600mg PO BID for anxiety, and pain Continue Trazodone 50mg at bedtime for insomnia Non-psychiatric medication:will defer that to medical team. Pt reports home medications minocyclin 50 mg by mouth daily, Etodolac 400 mg twice daily with food.
[2016-08-23] MEDS: MELATONIN 5 MG TABLET PO SCH (20:48)
[2016-08-23 21:13] VITALS: BMI 26.2
[2016-08-23] MEDS: diphenhydrAMINE 25 MG CAP PO PRN (21:23)
[2016-08-23] MEDS: TRIAMCINOLONE 0.1% CREAM 80 GM TUBE TOPICAL SCH (22:28)
[2016-08-24] MEDS: ACETAMINOPHEN TAB 325 MG TAB PO PRN ×2 (02:51→10:24)
[2016-08-24] MEDS: DULoxetine HCL 60 MG CAPSULE.DR PO SCH (10:21)
[2016-08-24] MEDS: METOPROLOL TARTRATE 12.5 MG TAB PO SCH ×2 (10:21→21:35)
[2016-08-24] MEDS: GABAPENTIN 300 MG CAP PO SCH ×2 (10:21→21:35)
[2016-08-24] MEDS: TRIAMCINOLONE 0.1% CREAM 80 GM TUBE TOPICAL SCH ×3 (10:22→21:41)
[2016-08-24] MEDS: LORazepam 1 MG TAB PO PRN ×2 (11:30→21:35)
[2016-08-24] MEDS: OLANZapine ODT 5 MG TAB PO PRN (11:30)
--- NOTE | 2016-08-24 11:44 | P.CONS ---
History of Present Illness - Reason for Consult Consult date: 08/24/16 Positive blood cultures - History of Present Illness This is a 66-year-old female who was admitted to the mental health unit on August 22 for depression. She normally follows with Dr. Gifford and a week ago she was in the office because she cut her left middle finger with brand-new pruning re that she had just opened. She wanted to know if she needed stitches which they applied some cream and she was discharged home. She states at that time she had a temperature of 99. Patient has extensive problems recently and in the court system regarding some issues with her mother and her mother's care. She complains of various different issues stating that she is unable to regulate her body temperature and she sweats profusely. She has a history of closed head injury 20 years ago. She also states she follows with Dr. Sanchez and he diagnosed her recently with serotonin syndrome but apparently her psychiatrist, Dr. Meyer, did not feel it was this. She was on trazodone which was decreased from 75 mg to 50 mg prior to her admission. Dr. Sanchez also provided her with melatonin for sleep which she is stated did not help her. Patient denies having any known fever or chills but only concern that she cannot regulate her body temperature which has been going on for years. She currently denies any nausea vomiting or diarrhea although when evaluated on August 22 for medicine she did complain of abdominal pain that it been going on for one year. She states she has had a rash for 2 weeks to her arms and also to her legs. Patient presented with a temperature of 101.8 and pulse of 116, CPK was 57. She has been afebrile since that time and she has had no leukocytosis. However, patient has had multiple blood cultures obtained which have been positive for coag-negative staph. Patient has not been treated with antibiotics. Patient does state that she has vision changes and she has concentration problems as well as difficulty speaking and mixing up her words that have all been going on for some time. Review of Systems All systems: negative Constitutional: Reports sweats, Denies chills, Denies fever Eyes: denies blurred vision, denies pain Ears, nose, mouth and throat: Reports headache, Denies sore throat Cardiovascular: Denies chest pain, Denies shortness of breath Respiratory: Denies cough Gastrointestinal: Denies abdominal pain, Denies diarrhea, Denies nausea, Denies vomiting Genitourinary: Denies dysuria, Denies hematuria Musculoskeletal: Denies myalgias Integumentary: Denies pruritus, Denies rash Neurological: Denies numbness, Denies weakness Psychiatric: Reports anxiety, Reports anxiety attacks, Reports confusion, Denies depression Endocrine: Denies fatigue, Denies weight change Past Medical History Additional Past Medical History / Comment(s): closed head injury, shingles History of Any Multi-Drug Resistant Organisms: None Reported Past Surgical History: Joint Replacement Additional Past Surgical History / Comment(s): Left knee arthroplasty Smoking Status: Never smoker - Past Family History Father Additional Family Medical History / Comment(s): Father at age 86 from COPD. Mother Additional Family Medical History / Comment(s): Mother is alive at age 97 with dementia. Brother(s) Additional Family Medical History / Comment(s): Patient has 1 brother and 2 sisters and does not know their medical history. Medications and Allergies Home Medications Medication Instructions Recorded Confirmed Type DULoxetine HCL [Cymbalta] 120 tab PO DAILY 10/14/14 08/21/16 History Dextroamphetamine/Amphetamine 30 mg PO BID 10/14/14 08/21/16 History [Adderall] Etodolac [Lodine] 400 mg PO AC-BID 10/14/14 08/21/16 History ALPRAZolam [Xanax] 0.25 mg PO BID PRN 03/30/16 08/21/16 History Gabapentin [Neurontin] 600 mg PO TID 03/30/16 08/21/16 History Omeprazole [PriLOSEC] 20 mg PO AC-BRKFST 03/30/16 08/21/16 History Minocycline HCl [Minocin] 50 mg PO DAILY 08/21/16 08/21/16 History traZODone HCL 150 mg PO HS 08/21/16 08/21/16 History Allergies Allergy/AdvReac Type Severity Reaction Status Date / Time Iodinated Contrast Media - Allergy Unknown Verified 08/23/16 21:15 Oral and venom-wasp [wasp venom] AdvReac Rash/Hives Verified 08/23/16 21:15 Physical Exam Vitals: Vital Signs Temp Pulse Pulse Resp BP BP Pulse Ox 08/24/16 10:26 98.2 F 87 18 124/74 08/24/16 06:49 97.9 F 60 14 103/58 97 08/23/16 22:07 88 111/69 Gen: This is a 66-year-old female. Patient is crying and very upset during the entire evaluation. HEENT: Head is atraumatic, normocephalic. Pupils equal, round. Sclerae is anicteric. NECK: Supple. No JVD. No lymphadenopathy. No thyromegaly. LUNGS: Clear to auscultation. No wheezes or rhonchi. No intercostal retractions. HEART: Regular rate and rhythm. No murmur. ABDOMEN: Soft. Bowel sounds are present. No masses. No tenderness. EXTREMITIES: No pedal edema. No calf tenderness. Mild redness noted to the upper extremities area and patient has a healed wound to the renal left middle finger. Vesicle noted on the next finger NEUROLOGICAL: Patient is awake, alert and oriented x3. Cranial nerves 2 through 12 are grossly intact. Results Results: Laboratory Results WBC 3.4 k/uL (3.8-10.6) L 08/23/16 08:32 RBC 4.28 m/uL (3.80-5.40) 08/23/16 08:32 Hgb 13.3 gm/dL (11.4-16.0) 08/23/16 08:32 Hct 39.6 % (34.0-46.0) 08/23/16 08:32 MCV 92.5 fL (80.0-100.0) 08/23/16 08:32 MCH 31.2 pg (25.0-35.0) 08/23/16 08:32 MCHC 33.7 g/dL (31.0-37.0) 08/23/16 08:32 RDW 13.3 % (11.5-15.5) 08/23/16 08:32 Plt Count 218 k/uL (150-450) 08/23/16 08:32 Neutrophils % 55 % 08/21/16 20:13 Lymphocytes % 36 % 08/21/16 20:13 Monocytes % 7 % 08/21/16 20:13 Eosinophils % 1 % 08/21/16 20:13 Basophils % 1 % 08/21/16 20:13 Neutrophils # 2.6 k/uL (1.3-7.7) 08/21/16 20:13 Lymphocytes # 1.7 k/uL (1.0-4.8) 08/21/16 20:13 Monocytes # 0.3 k/uL (0-1.0) 08/21/16 20:13 Eosinophils # 0.0 k/uL (0-0.7) 08/21/16 20:13 Basophils # 0.0 k/uL (0-0.2) 08/21/16 20:13 Sodium 140 mmol/L (137-145) 08/21/16 20:13 Potassium 3.7 mmol/L (3.5-5.1) 08/21/16 20:13 Chloride 107 mmol/L (98-107) 08/21/16 20:13 Carbon Dioxide 22 mmol/L (22-30) 08/21/16 20:13 Anion Gap 11 mmol/L 08/21/16 20:13 BUN 17 mg/dL (7-17) 08/21/16 20:13 Creatinine 0.95 mg/dL (0.52-1.04) 08/21/16 20:13 Est GFR (MDRD) Af Amer >60 (>60 ml/min/1.73 sqM) 08/21/16 20:13 Est GFR (MDRD) Non-Af 59 (>60 ml/min/1.73 sqM) 08/21/16 20:13 Glucose 108 mg/dL (74-99) H 08/21/16 20:13 Calcium 9.4 mg/dL (8.4-10.2) 08/21/16 20:13 Phosphorus 3.0 mg/dL (2.5-4.5) 08/21/16 20:13 Magnesium 2.1 mg/dL (1.6-2.3) 08/21/16 20:13 Total Bilirubin 1.0 mg/dL (0.2-1.3) 08/21/16 20:13 AST 20 U/L (14-36) 08/21/16 20:13 ALT 13 U/L (9-52) 08/21/16 20:13 Alkaline Phosphatase 96 U/L (38-126) 08/21/16 20:13 Total Creatine Kinase 57 U/L (30-135) 08/21/16 20:13 CK-MB (CK-2) 0.7 ng/mL (0.0-2.4) 08/21/16 20:13 CK-MB (CK-2) Rel Index 1.2 08/21/16 20:13 Total Protein 6.4 g/dL (6.3-8.2) 08/21/16 20:13 Albumin 3.7 g/dL (3.5-5.0) 08/21/16 20:13 Vitamin B12 711 pg/mL (239-931) 08/22/16 14:27 TSH 1.570 mIU/L (0.465-4.680) 08/23/16 08:32 Cortisol 3 ug/dL 08/22/16 14:27 Urine Color Yellow 08/21/16 17:21 Urine Appearance Clear (Clear) 08/21/16 17:21 Urine pH 5.5 (5.0-8.0) 08/21/16 17:21 Ur Specific [place] 1.022 (1.001-1.035) 08/21/16 17:21 Urine Protein Trace (Negative) H 08/21/16 17:21 Urine Glucose (UA) Negative (Negative) 08/21/16 17:21 Urine Ketones 1+ (Negative) H 08/21/16 17:21 Urine Blood Negative (Negative) 08/21/16 17:21 Urine Nitrite Negative (Negative) 08/21/16 17:21 Urine Bilirubin 4+ (Negative) H 08/21/16 17:21 Urine Urobilinogen 2.0 mg/dL (<2.0) 08/21/16 17:21 Ur Leukocyte Esterase Small (Negative) H 08/21/16 17:21 Urine RBC 1 /hpf (0-5) 08/21/16 17:21 Urine WBC 4 /hpf (0-5) 08/21/16 17:21 Ur Squamous Epith Cells 1 /hpf (0-4) 08/21/16 17:21 Urine Bacteria Rare /hpf (None) H 08/21/16 17:21 Urine Mucus Occasional /hpf (None) H 08/21/16 17:21 Salicylates <1.0 mg/dL 08/21/16 20:13 Urine Opiates Screen Not Detected (NotDetected) 08/21/16 17:21 Ur Oxycodone Screen Not Detected (NotDetected) 08/21/16 17:21 Urine Methadone Screen Not Detected (NotDetected) 08/21/16 17:21 Ur Propoxyphene Screen Not Detected (NotDetected) 08/21/16 17:21 Acetaminophen <10.0 ug/mL 08/21/16 20:13 Ur Barbiturates Screen Not Detected (NotDetected) 08/21/16 17:21 U Tricyclic Antidepress Not Detected (NotDetected) 08/21/16 17:21 Ur Phencyclidine Scrn Not Detected (NotDetected) 08/21/16 17:21 Ur Amphetamines Screen Detected (NotDetected) H 08/21/16 17:21 U Methamphetamines Scrn Not Detected (NotDetected) 08/21/16 17:21 U Benzodiazepines Scrn Not Detected (NotDetected) 08/21/16 17:21 Urine Cocaine Screen Not Detected (NotDetected) 08/21/16 17:21 U Marijuana (THC) Screen Not Detected (NotDetected) 08/21/16 17:21 Serum Alcohol <10 mg/dL 08/21/16 20:13 CBC & Chem 7: 08/23/16 08:32 08/21/16 20:13 Labs: Microbiology - Last 24 Hours (Table) 08/23/16 12:22 Blood Culture Gram Stain - Preliminary Blood 08/22/16 14:27 Blood Culture Gram Stain - Preliminary Blood 08/23/16 12:22 Blood Culture - Final Blood 08/22/16 15:33 Blood Culture - Preliminary Blood No Growth after 24 hours 08/22/16 14:27 Blood Culture - Final Blood Assessment and Plan Plan: Patient has been admitted to the mental health unit for depression. Patient was noted to have a fever or high at the time of presentation without leukocytosis and subsequently her multiple blood cultures have been positive for gram-positive cocci. Patient is noted to have a rash to her arms for which Dr. Bravo has ordered triamcinolone cream twice daily. Continue supportive care. Further recommendations as patient progresses. The above dictated assessment and findings were discussed with Dr. Schaffer. The impression and plan of care have been directed as dictated. Yahaira Galeas nurse practitioner acting as scribe for Dr. Schaffer.
--- NOTE | 2016-08-24 12:44 | P.PN ---
Progress Note - Text INTERVERAL HISTORY: Covering for Dr. Meyer . Discussed patient at treatment team meeting, reviewed chart, and met with patient. Staff informed that patient has been refusing care, CBC has shown possible gram- negative cocci. Patient admitted on a petition with to [facility] signed. Patient was lying in bed awake, sat up. Became irritable and sarcastic after I introduced myself and that I was covering for Dr. Meyer. Patient then went on to have a nonstop rant about how she's been mistreated, by everyone. Spoke about her mother and how she is not able to see her, spoke about her sister, spoke about her therapist, spoke about Dr. Meyer. Patient was irritable, labile. No clear evidence of psychosis. Marginally cooperative MENTAL STATUS EXAM:Patient alert and oriented 3, poor eye contact, fair groomed in hospital attire. Speech normal volume, rate and production. Coherent, logical and her come Lucie thought process. No KATHLEEN, no FOI. [No TB/ TW/TI] Denied auditory and visual hallucinations. Denied paranoid ideation, delusions or IOR. Memory [grossly intact] Cognition average to above average Mood irritable, angry, labile, affect constricted, congruent with mood. Denies suicidal ideation, denies homicidal ideation. Insight none; Judgment impaired PLAN: Continue with inpatient psychiatric hospitalization. Suicide precaution 15 minute checks Continue medication as prescribed. Encouraged milieu therapy
[2016-08-24] MEDS: MELATONIN 5 MG TABLET PO SCH (21:34)
--- NOTE | 2016-08-24 22:14 | P.CON ---
Consult Note - . Consult date: 08/24/16 Assessment/Plan:: This is a 66-year-old female who was admitted to the mental health unit on August 22 for depression. She normally follows with Dr. Gifford and a week ago she was in the office because she cut her left middle finger with brand-new pruning re that she had just opened. She wanted to know if she needed stitches which they applied some cream and she was discharged home. She states at that time she had a temperature of 99. Patient has extensive problems recently and in the court system regarding some issues with her mother and her mother's care. She complains of various different issues stating that she is unable to regulate her body temperature and she sweats profusely. She has a history of closed head injury 20 years ago. She also states she follows with Dr. Sanchez and he diagnosed her recently with serotonin syndrome but apparently her psychiatrist, Dr. Meyer, did not feel it was this. She was on trazodone which was decreased from 75 mg to 50 mg prior to her admission. Dr. Sanchez also provided her with melatonin for sleep which she is stated did not help her. Patient denies having any known fever or chills but only concern that she cannot regulate her body temperature which has been going on for years. She currently denies any nausea vomiting or diarrhea although when evaluated on August 22 for medicine she did complain of abdominal pain that it been going on for one year. She states she has had a rash for 2 weeks to her arms and also to her legs. Patient presented with a temperature of 101.8 and pulse of 116, CPK was 57. She has been afebrile since that time and she has had no leukocytosis. However, patient has had multiple blood cultures obtained which have been positive for coag-negative staph. Patient has not been treated with antibiotics. Patient does state that she has vision changes and she has concentration problems as well as difficulty speaking and mixing up her words that have all been going on for some time.Patient is calm upon approach. But during the interview process he comes very agitated. Goes back over stories about happen to her over the last multiple months. Appears to have conspiracy theories of how the medical community is worked against her. Regarding her she' s had a fever without significant amounts of symptoms. She has had some rash is minimally pruritic. She is unable to concentrate well to describe her symptoms she is currently fixated on multiple recent events that she seems to believe her orchestrated for her to not be able to see her elderly mother. The patient exhibits paranoia and severe anxiety and agitation. Nursing staff will sedate her.please see the CONSULT NOTE DICTATED BYCNP Mrs Yahaira Galeas. Is noted the patient has had a fever. Etiology is of significant question. With a history of Brandi-Hilliard in the past. Blood cultures are coming back positive for gram-positive cocci likely her contaminations. However will need further intervention. We'll assess for underlying viral infection with Brandi- Hilliard and CMV titers. We'll recheck blood cultures to ensure that there is no evidence of true bacteremia rather than just contamination. Hopefully she'll cooperate well for the laboratory. RPR testing will also be performed. I agree with evaluation, assessment and plan as dictated by nurse practitioner [place] Yahaira Galeas.
[2016-08-25] MEDS: TRIAMCINOLONE 0.1% CREAM 80 GM TUBE TOPICAL SCH ×2 (08:38→20:42)
[2016-08-25] MEDS: GABAPENTIN 300 MG CAP PO SCH ×2 (08:40→20:42)
[2016-08-25] MEDS: DULoxetine HCL 60 MG CAPSULE.DR PO SCH (08:40)
[2016-08-25] MEDS: METOPROLOL TARTRATE 12.5 MG TAB PO SCH ×2 (08:45→20:41)
--- NOTE | 2016-08-25 12:10 | P.PN ---
Progress Note - Text INTERVERAL HISTORY: Covering for Dr. Meyer . Discussed patient at treatment team meeting, reviewed chart, and met with patient. Today in treatment meeting neonatal social worker who evaluated the patient in the emergency room on day of admission gave history of patient being manic, unable to stay on topic. Patient has been seen by infectious disease, appreciate consult. Patient was found in bed sound asleep. Patient awoke and was immediately irritated with mortgage or loan underwriter. Complained about the noise, the lights, her family. Patient angry that her family has not come to visit or called her or accepted her calls. Asked patient about past history of mood stabilizers, stated that she was violently ill to Lamictal, had a reaction to Depakote that she cannot recall. When asked about lithium said she wouldn't consider. Patient stating that she is just going to stay in bed to wait out this process until she is discharged. Patient admitted on a petition with to CERT signed. Patient denies suicidal ideation, continues to blame others for this that she had no intention and that her remark could not be considered as intending suicide. Later in day she came to office, stating that I don't know about her fibromyalgia and it complicates her treatment. MENTAL STATUS EXAM:Patient alert and oriented 3, poor eye contact, fair groomed in hospital attire. Speech normal volume, rate and production. Coherent, logical and circumstantial thought process. No KATHLEEN, no FOI. [No TB/TW /TI] Denied auditory and visual hallucinations. Denied paranoid ideation, delusions or IOR. Memory [grossly intact] Cognition average to above average Mood irritable, angry, labile, affect constricted, congruent with mood. Denies suicidal ideation, denies homicidal ideation. Insight none; Judgment impaired A:With SW report of patient's presentation in ER, and her tangential TP yesterday, considered dx of Bipolar, manic. PLAN: Continue with inpatient psychiatric hospitalization. Suicide precaution 15 minute checks Offered lithium after the ER presentation, but patient declined. Continue medication as prescribed. Encouraged milieu therapy
[2016-08-25] MEDS: ACETAMINOPHEN TAB 325 MG TAB PO PRN ×2 (12:11→20:52)
[2016-08-25] MEDS: MELATONIN 5 MG TABLET PO SCH (20:41)
[2016-08-25] MEDS ORDERED: ETODOLAC 400 MG TAB PO STA (22:12)
[2016-08-26] MEDS: diphenhydrAMINE 25 MG CAP PO PRN (04:33)
[2016-08-26] MEDS: DULoxetine HCL 60 MG CAPSULE.DR PO SCH (09:57)
[2016-08-26] MEDS: LORazepam 1 MG TAB PO PRN (09:58)
[2016-08-26] MEDS: GABAPENTIN 300 MG CAP PO SCH ×2 (09:58→20:42)
[2016-08-26] MEDS: METOPROLOL TARTRATE 12.5 MG TAB PO SCH ×2 (09:58→22:06)
[2016-08-26] MEDS: OLANZapine ODT 5 MG TAB PO PRN (09:58)
[2016-08-26] MEDS: TRIAMCINOLONE 0.1% CREAM 80 GM TUBE TOPICAL SCH ×2 (10:04→20:50)
--- NOTE | 2016-08-26 11:24 | P.PN ---
Progress Note - Text Interval history: The patient is found in her room she follows me to an interview room. The patient was admitted Wednesday on the petition completed by her outpatient therapist Any Terrazas. This patient follows me in the outpatient setting as well. I am familiar with the presenting symptoms precipitating this admission. I reviewed the psychiatric evaluation and subsequent progress notes from the other providing psychiatrists. Medication for mood stabilization was offered been met with patient refusal. The patient spent several minutes presenting me with court paperwork she again reviewed the circumstances causing her distress involving her mother. We have discussed this several times previously. The patient states she wants to be discharged and she will only get worse here. She spontaneously goes on to state how several people are working against her. It is clear that she is struggling with legal consequences that have been imposed on her and she continues to ruminate over them with poor control. Mental status exam: The patient is a disheveled female she is dressed in hospital gowns. Eye contact is intermittent speech is fluent and spontaneous verbose mildly pressured at times but I am able to interrupt. She demonstrates tearfulness frustration. She demonstrates no verbal or physical aggressiveness. She continues to ruminate in terms of thought process. Insight and judgment are limited. She is reporting no thoughts of harming others today she reports no thoughts of harming herself. Despite asking her several times to stay on topic she struggles with that and perseverates regarding her mother's issues. Plan: The patient will continue on the Cymbalta we will consider reducing the dose she feels trazodone is effective for sleep. We will reinstitute Depakote ER 750 mg at bedtime. We considered using Geodon as an alternative. The patient has no questions or concerns regarding the Depakote. She does not wish to remain hospitalized but it is necessary at this time for appropriate stabilization of her mood. We will monitor her for safety she is encouraged participate in groups but we'll likely be resistant. She does have a deferral conference scheduled for tomorrow.
[2016-08-26] MEDS: ACETAMINOPHEN TAB 325 MG TAB PO PRN (18:04)
[2016-08-26] MEDS: MELATONIN 5 MG TABLET PO SCH (20:50)
[2016-08-26] MEDS: traZODone HCL 50 MG TAB PO PRN (20:55)
[2016-08-26] MEDS ORDERED: DIVALPROEX ER 250 MG TAB.ER.24H PO SCH (21:00)
--- NOTE | 2016-08-26 22:19 | P.PN ---
Subjective Principal diagnosis: positive blood cultures This is a 66-year-old female who was admitted to the mental health unit on August 22 for depression. She normally follows with Dr. Gifford and a week ago she was in the office because she cut her left middle finger with brand-new pruning re that she had just opened. She wanted to know if she needed stitches which they applied some cream and she was discharged home. She states at that time she had a temperature of 99. Patient has extensive problems recently and in the court system regarding some issues with her mother and her mother's care. She complains of various different issues stating that she is unable to regulate her body temperature and she sweats profusely. She has a history of closed head injury 20 years ago. She also states she follows with Dr. Sanchez and he diagnosed her recently with serotonin syndrome but apparently her psychiatrist, Dr. Meyer, did not feel it was this. She was on trazodone which was decreased from 75 mg to 50 mg prior to her admission. Dr. Sanchez also provided her with melatonin for sleep which she is stated did not help her. Patient denies having any known fever or chills but only concern that she cannot regulate her body temperature which has been going on for years. She currently denies any nausea vomiting or diarrhea although when evaluated on August 22 for medicine she did complain of abdominal pain that it been going on for one year. She states she has had a rash for 2 weeks to her arms and also to her legs. Patient presented with a temperature of 101.8 and pulse of 116, CPK was 57. She has been afebrile since that time and she has had no leukocytosis. However, patient has had multiple blood cultures obtained which have been positive for coag-negative staph. Patient has not been treated with antibiotics. Patient does state that she has vision changes and she has concentration problems as well as difficulty speaking and mixing up her words that have all been going on for some time. As noted with the interview the patient has extensive anxiety Objective - Vital Signs Vital signs: Vital Signs Temp 98.1 F 08/26/16 18:03 Pulse 83 08/26/16 22:06 Resp 18 08/26/16 06:35 BP 123/63 08/26/16 22:06 Pulse Ox 97 08/24/16 06:49 - Exam Gen: This is a 66-year-old female. Less volatile HEENT: Head is atraumatic, normocephalic. Pupils equal, round. Sclerae is anicteric. NECK: Supple. No JVD. No lymphadenopathy. No thyromegaly. LUNGS: Clear to auscultation. No wheezes or rhonchi. No intercostal retractions. HEART: Regular rate and rhythm. No murmur. ABDOMEN: Soft. Bowel sounds are present. No masses. No tenderness. EXTREMITIES: No pedal edema. No calf tenderness. Mild redness noted to the upper extremities area and patient has a healed wound to the renal left middle finger. Healing traumatic blister hand. NEUROLOGICAL: Patient is awake, alert and oriented x3 - Labs CBC & Chem 7: 08/23/16 08:32 08/21/16 20:13 Labs: Microbiology - Last 24 Hours (Table) 08/24/16 19:04 Blood Culture - Preliminary Blood No Growth after 48 hours 08/24/16 18:51 Blood Culture - Preliminary Blood No Growth after 48 hours 08/22/16 15:33 Blood Culture - Preliminary Blood No Growth after 96 hours 08/22/16 14:27 Blood Culture Gram Stain - Final Blood Blood Culture - Final Staphylococcus epidermidis Laboratory Results WBC 3.4 k/uL (3.8-10.6) L 08/23/16 08:32 RBC 4.28 m/uL (3.80-5.40) 08/23/16 08:32 Hgb 13.3 gm/dL (11.4-16.0) 08/23/16 08:32 Hct 39.6 % (34.0-46.0) 08/23/16 08:32 MCV 92.5 fL (80.0-100.0) 08/23/16 08:32 MCH 31.2 pg (25.0-35.0) 08/23/16 08:32 MCHC 33.7 g/dL (31.0-37.0) 08/23/16 08:32 RDW 13.3 % (11.5-15.5) 08/23/16 08:32 Plt Count 218 k/uL (150-450) 08/23/16 08:32 Neutrophils % 55 % 08/21/16 20:13 Lymphocytes % 36 % 08/21/16 20:13 Monocytes % 7 % 08/21/16 20:13 Eosinophils % 1 % 08/21/16 20:13 Basophils % 1 % 08/21/16 20:13 Neutrophils # 2.6 k/uL (1.3-7.7) 08/21/16 20:13 Lymphocytes # 1.7 k/uL (1.0-4.8) 08/21/16 20:13 Monocytes # 0.3 k/uL (0-1.0) 08/21/16 20:13 Eosinophils # 0.0 k/uL (0-0.7) 08/21/16 20:13 Basophils # 0.0 k/uL (0-0.2) 08/21/16 20:13 Sodium 140 mmol/L (137-145) 08/21/16 20:13 Potassium 3.7 mmol/L (3.5-5.1) 08/21/16 20:13 Chloride 107 mmol/L (98-107) 08/21/16 20:13 Carbon Dioxide 22 mmol/L (22-30) 08/21/16 20:13 Anion Gap 11 mmol/L 08/21/16 20:13 BUN 17 mg/dL (7-17) 08/21/16 20:13 Creatinine 0.95 mg/dL (0.52-1.04) 08/21/16 20:13 Est GFR (MDRD) Af Amer >60 (>60 ml/min/1.73 sqM) 08/21/16 20:13 Est GFR (MDRD) Non-Af 59 (>60 ml/min/1.73 sqM) 08/21/16 20:13 Glucose 108 mg/dL (74-99) H 08/21/16 20:13 Calcium 9.4 mg/dL (8.4-10.2) 08/21/16 20:13 Phosphorus 3.0 mg/dL (2.5-4.5) 08/21/16 20:13 Magnesium 2.1 mg/dL (1.6-2.3) 08/21/16 20:13 Total Bilirubin 1.0 mg/dL (0.2-1.3) 08/21/16 20:13 AST 20 U/L (14-36) 08/21/16 20:13 ALT 13 U/L (9-52) 08/21/16 20:13 Alkaline Phosphatase 96 U/L (38-126) 08/21/16 20:13 Total Creatine Kinase 57 U/L (30-135) 08/21/16 20:13 CK-MB (CK-2) 0.7 ng/mL (0.0-2.4) 08/21/16 20:13 CK-MB (CK-2) Rel Index 1.2 08/21/16 20:13 Total Protein 6.4 g/dL (6.3-8.2) 08/21/16 20:13 Albumin 3.7 g/dL (3.5-5.0) 08/21/16 20:13 Vitamin B12 711 pg/mL (239-931) 08/22/16 14:27 TSH 1.570 mIU/L (0.465-4.680) 08/23/16 08:32 Cortisol 3 ug/dL 08/22/16 14:27 Urine Color Yellow 08/21/16 17:21 Urine Appearance Clear (Clear) 08/21/16 17:21 Urine pH 5.5 (5.0-8.0) 08/21/16 17:21 Ur Specific [place] 1.022 (1.001-1.035) 08/21/16 17:21 Urine Protein Trace (Negative) H 08/21/16 17:21 Urine Glucose (UA) Negative (Negative) 08/21/16 17:21 Urine Ketones 1+ (Negative) H 08/21/16 17:21 Urine Blood Negative (Negative) 08/21/16 17:21 Urine Nitrite Negative (Negative) 08/21/16 17:21 Urine Bilirubin 4+ (Negative) H 08/21/16 17:21 Urine Urobilinogen 2.0 mg/dL (<2.0) 08/21/16 17:21 Ur Leukocyte Esterase Small (Negative) H 08/21/16 17:21 Urine RBC 1 /hpf (0-5) 08/21/16 17:21 Urine WBC 4 /hpf (0-5) 08/21/16 17:21 Ur Squamous Epith Cells 1 /hpf (0-4) 08/21/16 17:21 Urine Bacteria Rare /hpf (None) H 08/21/16 17:21 Urine Mucus Occasional /hpf (None) H 08/21/16 17:21 Salicylates <1.0 mg/dL 08/21/16 20:13 Urine Opiates Screen Not Detected (NotDetected) 08/21/16 17:21 Ur Oxycodone Screen Not Detected (NotDetected) 08/21/16 17:21 Urine Methadone Screen Not Detected (NotDetected) 08/21/16 17:21 Ur Propoxyphene Screen Not Detected (NotDetected) 08/21/16 17:21 Acetaminophen <10.0 ug/mL 08/21/16 20:13 Ur Barbiturates Screen Not Detected (NotDetected) 08/21/16 17:21 U Tricyclic Antidepress Not Detected (NotDetected) 08/21/16 17:21 Ur Phencyclidine Scrn Not Detected (NotDetected) 08/21/16 17:21 Ur Amphetamines Screen Detected (NotDetected) H 08/21/16 17:21 U Methamphetamines Scrn Not Detected (NotDetected) 08/21/16 17:21 U Benzodiazepines Scrn Not Detected (NotDetected) 08/21/16 17:21 Urine Cocaine Screen Not Detected (NotDetected) 08/21/16 17:21 U Marijuana (THC) Screen Not Detected (NotDetected) 08/21/16 17:21 Serum Alcohol <10 mg/dL 08/21/16 20:13 Treponema pallidum Ab Non-Reactive (Non-Reactive) 08/24/16 18:51 Microbiology 08/24/16 19:04 Blood Blood Culture - Preliminary No Growth after 48 hours 08/24/16 18:51 Blood Blood Culture - Preliminary No Growth after 48 hours 08/22/16 15:33 Blood Blood Culture - Preliminary No Growth after 96 hours 08/22/16 14:27 Blood Blood Culture Gram Stain - Final 08/22/16 14:27 Blood Blood Culture - Final Staphylococcus epidermidis 08/23/16 12:22 Blood Blood Culture Gram Stain - Preliminary 08/23/16 12:22 Blood Blood Culture - Preliminary Coagulase Negative Staph 08/23/16 12:22 Blood Blood Culture - Final 08/22/16 14:27 Blood Blood Culture - Final Assessment and Plan (1) Suicidal ideation Status: Acute (2) Bacteremia Narrative/Plan: 66-year-old woman presents to Hospital to the psychiatric unit under petition. Is under per the psychiatry notes is still struggling with her status. Medications are being altered and hopes to improve her current psychotic symptoms Partially her fevers have resolved. Only had the one fever originally. There was some possible cultures at admission. They've all now been finalized as coagulase-negative staph. And follow blood cultures are negative. There is no evidence of any significant illness that is of bacterial nature. The blood cultures were contamination and need no further intervention. RPRs come back as negative. It is noted there or amphetamines in her system at admission, which may have driven her fever. We'll follow with further request Status: Acute
[2016-08-27] MEDS: diphenhydrAMINE 25 MG CAP PO PRN (03:30)
[2016-08-27] MEDS: ACETAMINOPHEN TAB 325 MG TAB PO PRN ×2 (03:32→08:49)
[2016-08-27 07:32] LABS: EBV - EA (IgG) <5.0 U/mL (<9.0); EBV - VCA (IgG) <10.0 U/mL (<18.0)
[2016-08-27 07:33] LABS: EBV - VCA IgM <10.0 U/mL (<36.0)
[2016-08-27] MEDS: METOPROLOL TARTRATE 12.5 MG TAB PO SCH ×2 (08:46→21:01)
[2016-08-27] MEDS: DULoxetine HCL 60 MG CAPSULE.DR PO SCH (08:46)
[2016-08-27] MEDS: TRIAMCINOLONE 0.1% CREAM 80 GM TUBE TOPICAL SCH ×2 (08:46→21:39)
[2016-08-27] MEDS: GABAPENTIN 300 MG CAP PO SCH ×2 (08:46→21:02)
--- NOTE | 2016-08-27 10:58 | P.PN ---
Progress Note - Text Interval history: The patient is found in her room seated on the floor in the corner with the lights off crying. Reluctantly she follows me to an interview room. She remains hyperverbal she describes having difficulty sleeping last night due to disturbances on the unit with new admissions. She reports having a migraine headache and has difficulty tolerating the lighting on the mental health unit. She proceeds to go through all of the precipitating events causing his admission again. She reports that she did eat this morning. She reports poor sleep. She lacks insight into why she was admitted and is asking to be discharged. Mental status exam: The patient is alert she has a disheveled appearance she is dressed in hospital attire. Eye contact is intermittent. The patient is verbose she is pressured at times she interrupts me in speech numerous times and has to be redirected. She demonstrates a circumstantial thought process and at times tangential. Affect is labile and she is tearful throughout the session. She lacks insight into her presentation judgment is impaired. She reports no suicidal or homicidal thoughts. She is endorsing no hallucinations or specific delusions however she continues to spontaneously describe how numerous people have done things against her. Plan: The patient will continue on her current psychotropics however we will discontinue the melatonin and I will increase the Depakote ER 2000 mg at bedtime to ensure a therapeutic level. She does utilize [place] up to once daily as an outpatient that will be ordered as needed. She is instructed to begin participating in the milieu so we can continue to assess her for safety. Vital signs reviewed. She requires continued hospitalization and would be expected to progress if discharged. She had a deferral conference and signed the deferral agreement this morning.
[2016-08-27] MEDS: HYDROcodone/APAP 5-325MG 1 EACH TAB PO PRN (12:55)
[2016-08-27] MEDS: DIVALPROEX ER 500 MG TAB.ER.24H PO SCH (21:02)
[2016-08-28] MEDS: ACETAMINOPHEN TAB 325 MG TAB PO PRN (01:24)
[2016-08-28] MEDS: traZODone HCL 50 MG TAB PO PRN ×3 (01:41→23:51)
[2016-08-28] MEDS: DULoxetine HCL 60 MG CAPSULE.DR PO SCH (09:41)
[2016-08-28] MEDS: GABAPENTIN 300 MG CAP PO SCH ×2 (09:41→20:20)
[2016-08-28] MEDS: METOPROLOL TARTRATE 12.5 MG TAB PO SCH ×2 (09:42→20:18)
[2016-08-28] MEDS: TRIAMCINOLONE 0.1% CREAM 80 GM TUBE TOPICAL SCH ×2 (09:43→20:21)
--- NOTE | 2016-08-28 11:25 | P.PN ---
Progress Note - Text Interval history: The patient is found in the hallway she follows me to an interview room. Staff report that she has made some efforts to attend group. The patient's again is quite verbose and speaks to the numerous frustrations she has experienced since being admitted. She continues to ruminate about the situation regarding her mother and her inability to see her. The patient has no questions or concerns regarding the Depakote. She describes having concern about not taking her Adderall which has been chronically prescribed or her anti- inflammatory medication. She expresses concern regarding her blood pressure vital signs were reviewed. Mental status exam: The patient is alert she is dressed in her own clothing. Hygiene grooming is adequate. Eye contact is intermittent. She is tearful throughout the entire session. She does have spontaneous speech she is verbose and mildly pressured at times. She is directable at times. She continues to endorse a sad and frustrated mood. She feels that she has been hospitalized as a "punishment" attempts are made to try to cognitively reframe her current circumstances but she is resistant. Insight and judgment are limited. She is endorsing no overt hallucinations or specific delusions but continues to feel a variety of circumstances and people have been working against her. She reports feeling safe in the hospital she endorses no homicidal ideation. Plan: The patient will continue on the Depakote I will order a Depakote level and liver enzymes for Wednesday morning. She requires continued hospitalization as we would like to see her mood and affect stabilize and demonstrate less lability. It appears she is making more of an effort to participate in the milieu today she is encouraged to continue doing so.
[2016-08-28] MEDS: ETODOLAC 400 MG TAB PO SCH ×2 (12:01→20:18)
[2016-08-28] MEDS: DICLOFENAC SODIUM GEL 100 GM TUBE TOPICAL SCH ×3 (12:47→20:22)
[2016-08-28] MEDS: LORATADINE 10 MG TAB PO SCH (12:47)
[2016-08-28] MEDS: DIVALPROEX ER 500 MG TAB.ER.24H PO SCH (20:18)
[2016-08-29] MEDS: DICLOFENAC SODIUM GEL 100 GM TUBE TOPICAL SCH ×4 (09:17→21:16)
[2016-08-29] MEDS: LORATADINE 10 MG TAB PO SCH (09:19)
[2016-08-29] MEDS: DULoxetine HCL 60 MG CAPSULE.DR PO SCH (09:19)
[2016-08-29] MEDS: GABAPENTIN 300 MG CAP PO SCH ×2 (09:19→21:14)
[2016-08-29] MEDS: ETODOLAC 400 MG TAB PO SCH ×2 (09:19→21:13)
[2016-08-29] MEDS: METOPROLOL TARTRATE 12.5 MG TAB PO SCH ×2 (09:20→21:14)
[2016-08-29] MEDS: TRIAMCINOLONE 0.1% CREAM 80 GM TUBE TOPICAL SCH ×2 (09:20→21:16)
[2016-08-29] MEDS: ACETAMINOPHEN TAB 325 MG TAB PO PRN (09:21)
--- NOTE | 2016-08-29 15:07 | P.PN ---
Progress Note - Text Weekend coverage for Dr. Meyer Interval history: Discussed with nursing staff, report that she is upset she says that she should be receiving Adderall, that Dr. Meyer had agreed to do this. Discussed with nursing staff and decided that there was nothing in notes or orders and will have to wait till the weekend is over when Dr. Meyer is here. Patient approached service writer at the nurse's station and began to argue over the Adderall, explained to her that maybe it was an error but that I cannot recommend starting Adderall. She then states she's got a headache, I mentioned that Adderall is not used for headaches, she then said to me that she would just lay in bed the rest of the day. Later in the day she was found laying in bed, complaining of a headache stating that she did not want to take a narco. She then begins to complain about staff , the program not allowing the activity room to be open for individuals to go in and use it when they choose. Complains about the fact that no one came to call her for group. She then complains about requesting a friend to bring hard candy, that leads her to going into the situation of her mother. Asked her to stop at that point to address other issues, unfortunately I called her Candida instead of Mayuri she became angry with me. I apologized to her, she then said that's just what this program is you don't even know me. Mental status exam: Patient was alert and awake lying in bed, seated up with her glasses on. Speech was normal rate and production, no pressured speech no KATHLEEN no FOI no delusions no ideas of reference no auditory or visual hallucinations Mood irritable and labile affect constricted. Denies suicidal ideation Plan: We will continue the treatment plan. Patient continues to require inpatient psychiatric treatment, treatment to stabilize mood and demonstrate less lability.
[2016-08-29] MEDS: LORazepam 1 MG TAB PO PRN (15:24)
[2016-08-29] MEDS: DIVALPROEX ER 500 MG TAB.ER.24H PO SCH (21:13)
[2016-08-29] MEDS: traZODone HCL 50 MG TAB PO PRN (21:16)
[2016-08-30] MEDS: DICLOFENAC SODIUM GEL 100 GM TUBE TOPICAL SCH ×4 (08:49→21:11)
[2016-08-30] MEDS: ETODOLAC 400 MG TAB PO SCH ×2 (08:49→21:08)
[2016-08-30] MEDS: DULoxetine HCL 60 MG CAPSULE.DR PO SCH (08:49)
[2016-08-30] MEDS: GABAPENTIN 300 MG CAP PO SCH ×2 (08:50→21:10)
[2016-08-30] MEDS: METOPROLOL TARTRATE 12.5 MG TAB PO SCH ×2 (08:50→21:10)
[2016-08-30] MEDS: LORATADINE 10 MG TAB PO SCH (08:50)
[2016-08-30] MEDS: TRIAMCINOLONE 0.1% CREAM 80 GM TUBE TOPICAL SCH ×2 (08:50→21:12)
[2016-08-30] MEDS: ACETAMINOPHEN TAB 325 MG TAB PO PRN (10:12)
--- NOTE | 2016-08-30 11:04 | P.PN ---
Progress Note - Text Weekend coverage for Dr. Meyer Interval history: Discussed with nursing staff, report that she had a difficult day yesterday with not receiving Adderal and being called by wrong first name by racebook writer but by end of day she was up and in activity room coloring. Today she has been up and attending groups. Found her in her room in bed, no group was occurring. She states today is pretty good. Aplogized for using wrong name, she stated it was very upsetting but that she got over it. No headache reported today Mental status exam: Patient was alert and awake lying in bed, did not sit up to speak, turned partially to see me. Speech was normal rate and production, no pressured speech no KATHLEEN no FOI no delusions no ideas of reference no auditory or visual hallucinations Mood neutral; affect constricted. Denies suicidal ideation Plan: We will continue the same treatment plan. Patient continues to require inpatient psychiatric treatment, treatment to stabilize mood and demonstrate less lability.
[2016-08-30] MEDS: DIVALPROEX ER 500 MG TAB.ER.24H PO SCH (21:18)
[2016-08-30] MEDS: traZODone HCL 50 MG TAB PO PRN (22:54)
[2016-08-31] MEDS: PANTOPRAZOLE 40 MG TABLET PO SCH ×2 (09:26→16:46)
[2016-08-31] MEDS: LORATADINE 10 MG TAB PO SCH (09:26)
[2016-08-31] MEDS: GABAPENTIN 300 MG CAP PO SCH ×2 (09:27→21:14)
[2016-08-31] MEDS: DULoxetine HCL 60 MG CAPSULE.DR PO SCH (09:27)
[2016-08-31] MEDS: ETODOLAC 400 MG TAB PO SCH ×2 (09:27→21:13)
[2016-08-31] MEDS: METOPROLOL TARTRATE 12.5 MG TAB PO SCH ×2 (09:29→21:14)
[2016-08-31] MEDS: TRIAMCINOLONE 0.1% CREAM 80 GM TUBE TOPICAL SCH ×2 (09:29→22:04)
--- NOTE | 2016-08-31 09:39 | P.PN ---
Progress Note - Text Interval history: The patient is found in the hallway she follows me to an interview room. She feels that she is doing better she has been making some attempts at attending group. She continues to be frustrated by the rules and expectations on the mental health unit. It appears she was not given her Adderall we will address this further. She continues to describe having chronic headaches which has been an ongoing issue prior to this hospitalization. She reports concern that no one will care for her cat if she is here much longer. We are awaiting blood work for this morning. We discussed her outpatient follow-up and she will consider returning to work with Any and myself. Mental status exam: The patient is alert she seated calmly she is more collected affect is more stable. She does continue to be somatically preoccupied. She does continue to ventilate her frustrations regarding rules on the mental health unit. She is reporting no acute suicidal or homicidal ideation. There is no overt evidence of psychosis. She demonstrates no verbal or physical aggressiveness. She is participating in conversation more appropriately. She is dressed in her own clothing. Hygiene is good. Eye contact is appropriate. She is still circumstantial which is a chronic issue she can be tangential at times but she is working harder to follow redirection. Plan: The patient will continue on her current medication we are awaiting a Depakote level. If that appears appropriate and she continues to improve we will consider discharging her tomorrow. We will continue to monitor her for safety and encourage her participation in the milieu.
[2016-08-31] MEDS: DICLOFENAC SODIUM GEL 100 GM TUBE TOPICAL SCH (09:53)
[2016-08-31] MEDS: ADDERALL 30 MG PO SCH (13:28)
[2016-08-31] MEDS: DIVALPROEX ER 500 MG TAB.ER.24H PO SCH (21:13)
[2016-08-31] MEDS: traZODone HCL 50 MG TAB PO PRN (23:15)
[2016-08-31] MEDS: diphenhydrAMINE 25 MG CAP PO PRN (23:17)
[2016-09-01] MEDS: HYDROcodone/APAP 5-325MG 1 EACH TAB PO PRN (02:08)
[2016-09-01 06:46] VITALS: TEMP 97.7
[2016-09-01] MEDS: GABAPENTIN 300 MG CAP PO SCH (08:04)
[2016-09-01] MEDS: PANTOPRAZOLE 40 MG TABLET PO SCH (08:04)
[2016-09-01] MEDS: METOPROLOL TARTRATE 12.5 MG TAB PO SCH (08:04)
[2016-09-01] MEDS: DULoxetine HCL 60 MG CAPSULE.DR PO SCH (08:04)
[2016-09-01] MEDS: ETODOLAC 400 MG TAB PO SCH (08:05)
[2016-09-01] MEDS: LORATADINE 10 MG TAB PO SCH (08:05)
[2016-09-01] MEDS: TRIAMCINOLONE 0.1% CREAM 80 GM TUBE TOPICAL SCH (08:07)
[2016-09-01 08:31] VITALS: BP 105/66; PULSE 81; RESP 18
[2016-09-01] MEDS: ADDERALL 30 MG PO SCH (09:18)
--- NOTE | 2016-09-01 11:25 | P.DS ---
Providers Date of admission: 08/22/16 01:02 Expected date of discharge: 09/01/16 Attending physician: Tj Meyer Consults: 08/22/16 02:30 Consult Physician Routine Consulting Provider: Luiz Gifford Consult Reason/Comments: h and p, eval and tx r/o metabolic disorder Do you want consulting provider notified?: Yes, Notify in am 08/24/16 08:38 Consult Physician Routine Consulting Provider: Luiz Schaffer Consult Reason/Comments: + blood cultures Do you want consulting provider notified?: Yes Primary care physician: Luiz Gifford - Discharge Diagnosis(es) (1) Major depressive disorder, recurrent Current Visit: Yes Status: Acute Priority: High (2) Cognitive disorder Current Visit: Yes Status: Acute Priority: Medium Hospital Course: Brief summary of admission note: The patient's is a 66-year-old female who was admitted to the mental health unit on a petition and clinical certificate. She is well known to our outpatient practice and sees myself for medication management and Any Terrazas for individual psychotherapy. She had left a voicemail on her therapists line that was quite suggestive she was having suicidal ideation and she had stated she was going to "take the last step ". The police were called and the patient was brought to the hospital. The patient has been decompensating slowly over the last several months. There has been a long-standing legal issue with her visiting her mother who is in residential care due to medical issues. For full details please refer to the psychiatric evaluation. Summary of hospital course: The patient was admitted to the mental health unit she was initially evaluated by the linden jerome. I assumed care of the patient last Wednesday. We reviewed that she had been struggling with stability of mood and affect and decided to reinitiate Depakote ER 1000 mg at bedtime. The patient initially was labile pressured she was obstinate and was isolating. During the course of the hospitalization this improved she began attending groups utilizing humor and demonstrated a more stable affect. She is verbalizing no suicidal or homicidal ideation. She continues to be frustrated with her inability to see her mother. She is frustrated with the failure of a variety of different strategies to facilitate a visit with her mother. She does plan to follow with our clinic upon discharge. She is able to be her activities of daily living. Depakote level was drawn and the result was 39.6 liver function enzymes within normal limits. Mental status exam: The patient is an alert female. She is dressed in her own clothing hygiene grooming are adequate. Speech is fluent spontaneous nonpressured. She is directable in conversation today. She reports her mood is better. She does continue to be frustrated with a variety of circumstances that would chronically concern her. She reports no suicidal or homicidal ideation intent or plan. She is endorsing no auditory or visual hallucinations or specific delusions. There is no evidence of psychosis at this time. Her thought process is frequently circumstantial she can be tangential at times but is redirectable. There are no loose associations or flight of ideas. Insight and judgment improving area she demonstrates no verbal or physical aggressiveness. She remains oriented to person place and date. Affect is more appropriately expressive she is able to demonstrate appropriate use of humor and smiling. Impressions 1. 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 Cluster B traits 3. History of migraines, chronic pain, GERD Plan: The patient will be discharged from the mental health unit to return home. She will continue on Cymbalta 120 mg daily Depakote ER 1000 mg at bedtime trazodone 50 mg at bedtime and Adderall 30 mg up to twice daily. There is no imminent safety risk she is appropriate for continued outpatient care. Social work will confirm she has an appointment with her therapist this week area she will continue to follow with me for medication management. She is instructed to follow with her primary care physician for other somatic concerns and neurology as needed. Patient Condition at Discharge: Stable Plan - Discharge Summary New Discharge Prescriptions: New Divalproex ER [Depakote ER] 1,000 mg PO HS #60 tab Metoprolol Tartrate [Lopressor] 12.5 mg PO BID #60 tab traZODone HCL [Desyrel] 50 mg PO HS PRN #30 tab PRN Reason: Insomnia Continue Etodolac [Lodine] 400 mg PO AC-BID Dextroamphetamine/Amphetamine [Adderall] 30 mg PO BID Gabapentin [Neurontin] 600 mg PO TID ALPRAZolam [Xanax] 0.25 mg PO BID PRN PRN Reason: Anxiety Minocycline HCl [Minocin] 50 mg PO DAILY DULoxetine HCL [Cymbalta] 120 tab PO DAILY #60 Discontinued Omeprazole [PriLOSEC] 20 mg PO AC-BRKFST traZODone HCL 150 mg PO HS Discharge Medication List Dextroamphetamine/Amphetamine [Adderall] 30 mg PO BID 10/14/14 [History] Etodolac [Lodine] 400 mg PO AC-BID 10/14/14 [History] ALPRAZolam [Xanax] 0.25 mg PO BID PRN 03/30/16 [History] Gabapentin [Neurontin] 600 mg PO TID 03/30/16 [History] Minocycline HCl [Minocin] 50 mg PO DAILY 08/21/16 [History] DULoxetine HCL [Cymbalta] 120 tab PO DAILY #60 09/01/16 [Rx] Divalproex ER [Depakote ER] 1,000 mg PO HS #60 tab 09/01/16 [Rx] Metoprolol Tartrate [Lopressor] 12.5 mg PO BID #60 tab 09/01/16 [Rx] traZODone HCL [Desyrel] 50 mg PO HS PRN #30 tab 09/01/16 [Rx] Follow up Appointment(s)/Referral(s): Intake, Intake [Other] - 1 Week (w/ Any Storey on 09/03/16 @ 2pm w/ Dr. Meyer on 09/23/16 @ 3:40pm) Luiz Gifford MD [Primary Care Provider] - 1-2 days
== END 2016-09-01 14:06 | disposition home or self-care (01) | DRG 885 ==
LOC: EC 17:07 → 3MHU 08-22 01:02
PROVIDERS: ADMIT Psychiatry & Neurology Psychiatry; ATTEND Psychiatry & Neurology Psychiatry
DX: F33.9 Major depressive disorder, recurrent, unspecified (principal); R45.851 Suicidal ideations; Z91.19 Patient's noncompliance with other medical treatment and regimen; F41.0 Panic disorder [episodic paroxysmal anxiety]; F09 Unspecified mental disorder due to known physiological condition; F43.10 Post-traumatic stress disorder, unspecified; G43.909 Migraine, unspecified, not intractable, without status migrainosus; G47.00 Insomnia, unspecified; K21.9 Gastro-esophageal reflux disease without esophagitis; M17.0 Bilateral primary osteoarthritis of knee; M79.7 Fibromyalgia; Z79.899 Other long term (current) drug therapy; Z82.5 Family history of asthma and other chronic lower respiratory diseases; Z87.820 Personal history of traumatic brain injury; Z91.041 Radiographic dye allergy status; Z96.659 Presence of unspecified artificial knee joint
CPT/HCPCS: 36415; 71020; 80053; 80164; 80306; 80320; 81001; 82075; 82533; 82550; 82553; 82607; 83520; 83735; 84100; 84443; 84450; 84460; 85025; 85027; 86663; 86665; 86780; 87040; 87077; 87186; 93306; 99285

== ENCOUNTER → 2017-06-22 | Outpatient (CLI) | payer MEDICARE, BC ==
--- NOTE | 2017-06-22 13:28 | XR ---
Cervical spine HISTORY: Cervical fusion 4 weeks prior Two views of the cervical spine Correlation to prior cervical spine CT 05/21/2016, MRI 02/02/2017 Listhesis is thought to persist, seen best posteriorly, at C3-C4 as on prior MRI and CT. Patient is s tatus post anterior cervical fusion and discectomy at C3-C6. Intervertebral spacing blocks of been pl aced. Facet arthropathy changes are present. IMPRESSION: Neurosurgical follow-up with persistent listhesis as described.
== END | disposition home or self-care (01) ==
LOC: RADXRMAIN 10:55
DX: M43.12 Spondylolisthesis, cervical region (principal); Z98.1 Arthrodesis status
CPT/HCPCS: 72040

== ENCOUNTER → 2017-07-22 | Outpatient (CLI) | payer MEDICARE, BC ==
--- NOTE | 2017-07-22 14:32 | FL ---
EXAMINATION TYPE: FL barium swallow w video DATE OF EXAM: 07/22/2017 COMPARISON: NONE HISTORY: Dysphagia TECHNIQUE: Fluoroscopy. FINDINGS: Fluoroscopic guidance was provided for the procedure performed in conjunction with the [facility] [place] pathology department. Please see complete report forthcoming from the Speech Pathology departmen t. Various consistencies from thin liquid to solids were administered. Fluoroscopy time 3 minutes 7 seconds Number of images: 0 No aspiration or penetration was evident. There was increasing pooling within the vallecula most notably with the solid consistency. This would clear with thin liquids. There may been some difficulty with bolus propulsion through the hypopharynx. Some transient cricopha ryngeus muscle prominence appear to be present. IMPRESSION: 1. No aspiration or penetration. 2. Pooling within the vallecula most notably with solids. 3. Consider cricopharyngeus muscle abnormality. Reflux is not excluded
== END | disposition home or self-care (01) ==
LOC: RADFLMAIN 13:09
PROVIDERS: ATTEND Otolaryngology
DX: J39.2 Other diseases of pharynx (principal)
CPT/HCPCS: 74230

== ENCOUNTER → 2017-10-04 | Outpatient (CLI) | payer MEDICARE, BC ==
--- NOTE | 2017-10-04 15:59 | XR ---
EXAMINATION TYPE: XR cervical spine limited DATE OF EXAM: 10/04/2017 COMPARISON: 06/23/2007 HISTORY: Follow-up postsurgical TECHNIQUE: Four views are submitted. FINDINGS: The odontoid is intact. There are no compression deformities. The prevertebral soft tissue structur es are within normal limits. Post surgical change appears stable with minimal anterolisthesis C3 rel ative to C4. Multilevel facet arthropathy. IMPRESSION: 1. Stable postsurgical changes.
== END | disposition home or self-care (01) ==
LOC: RADXRMAIN 15:29
DX: M48.02 Spinal stenosis, cervical region (principal); Z98.890 Other specified postprocedural states
CPT/HCPCS: 72040

== ENCOUNTER → 2017-12-07 | Outpatient (CLI) | payer MEDICARE ==
--- NOTE | 2017-12-07 12:40 | XR ---
EXAMINATION TYPE: XR cervical spine limited DATE OF EXAM: 12/07/2017 COMPARISON: 10/04/2017 HISTORY: Postop TECHNIQUE: 3 views are submitted. FINDINGS: The odontoid is intact. There are no compression deformities. The prevertebral soft tissue structures are within normal limits. Post surgical change appears stable with minimal anterolisthesis C3 relati ve to C4. Multilevel facet arthropathy. IMPRESSION: 1. Stable postsurgical changes.
== END | disposition home or self-care (01) ==
LOC: RADXRMAIN 12:14
DX: M48.02 Spinal stenosis, cervical region (principal); Z98.890 Other specified postprocedural states
CPT/HCPCS: 72040

== ENCOUNTER → 2018-04-19 | Outpatient (CLI) | payer MEDICARE ==
--- NOTE | 2018-04-19 15:43 | NM ---
EXAMINATION TYPE: NM bone scan whole body DATE OF EXAM: 04/19/2018 COMPARISON: Cervical spine 12/07/2017 HISTORY: Spinal stenosis Delayed whole-body scanning was performed following the injection of 24 mCi Tc 99m MDP. Images acqui red 3 hours post injection. FINDINGS: Soft tissue uptake is normal. There is uptake along the cervical spine along the distribution of lois ent's spinal fusion. Maxillary and mandibular uptake is likely due to periodontal disease. Uptake is present within the right hip and knee, bilateral feet. Postop changes noted to the left kne e. Uptake within the left hip is more mild. Uptake within the thoracic and lumbar spine is likely deg enerative. There is increased uptake seen within the wrists, sternoclavicular joints, shoulders which is likely degenerative. IMPRESSION: Abnormal uptake along the cervical spine could be related to patient's surgery or possibly facet arth ropathy or combination. Degenerative changes as described.
== END | disposition home or self-care (01) ==
LOC: RADNMMAIN 11:08
DX: R93.7 Abnormal findings on diagnostic imaging of other parts of musculoskeletal system (principal)
CPT/HCPCS: 78306; A9503

== ENCOUNTER → 2018-08-19 | Outpatient (CLI) | payer MEDICARE ==
--- NOTE | 2018-08-19 13:08 | CT ---
EXAMINATION TYPE: CT cervical spine wo con DATE OF EXAM: 08/19/2018 COMPARISON: 05/21/2016 HISTORY: Spinal stenosis CT DLP: [address] of the cervical spine was performed with bone and soft tissue window settings submitted . Coronal and sagittal reconstruction is obtained. Interval changes of ACDF with anterior fixation plate and screws as well as intervertebral body space rs at C3-4, C4-5 and C5-6. Fusion is noted at C6-7 as well. There is appropriate postoperative alignm ent. Posterior ridging noted at C5-6 and C6-7 with mild effacement ventral thecal sac. No evidence fo r central stenosis or disc herniation. Mild left foraminal encroachment at C5-6. No evidence for frac ture. No malalignment seen. IMPRESSION: 1. Interval postoperative changes of ACDF as discussed with appropriate alignment. Posterior ridging as discussed. No evidence for recurrent stenosis.
== END | disposition home or self-care (01) ==
LOC: RADCTMAIN 11:56
DX: M48.02 Spinal stenosis, cervical region (principal); Z98.890 Other specified postprocedural states
CPT/HCPCS: 72125

== ENCOUNTER → 2018-12-24 | Outpatient (CLI) | payer MEDICARE ==
--- NOTE | 2018-12-26 04:38 | CT ---
EXAMINATION TYPE: CT cervical spine wo con DATE OF EXAM: 12/24/2018 COMPARISON: 08/19/2018 HISTORY: 68-year-old female Neck pain with radiating arm pain and numbness. Prior fusion TECHNIQUE: Contiguous axial scanning of the cervical spine without IV contrast. Coronal and sagittal reconstructions performed. CT DLP: 578 mGycm Automated exposure control for dose reduction was used. FINDINGS: No craniocervical junction abnormality, predental space widening, or prevertebral soft tissue swellin g. Degenerative changes of the C1 dens articulation. Postsurgical changes of C3-C6 ACDF. Interbody ankylosis is present at C6-C7 for an acute infective fu jamil from C3 down through C7 levels. Trace grade 1 anterolisthesis at C7-T1 just below the fused levels. Additional grade 1 anterolisthesi s at T1-T2 and T2-T3, T3-T4, unchanged with advanced degenerative disc disease at T2-T3. Dextro convex curvature at the cervicothoracic junction. Residual posterior osteophytic ridging at the fused C5-C6 and C6-C7 levels causing very mild narrowin g of the spinal canal, similar to prior. Hypertrophic facet arthropathy is redemonstrated. Scattered uncovertebral joint arthropathy. On the left, there is mild to moderate neural foraminal stenosis at C2-C3, mild at C4-C5, moderate at C5-C6. On the right, there is mild neural foraminal narrowing at C3-C4, C4-C5, mild to moderate at C4-C5. In area 1.4 cm nodularity extending from the posterior aspect of the left thyroid lobe is unchanged fro m 2017 suggesting a benign etiology. IMPRESSION: 1. STATUS POST C3-C6 ACDF WITH MATURE INTERBODY ANKYLOSIS ACROSS C6/C7. 2. 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 3. STABLE RESIDUAL POSTERIOR OSTEOPHYTIC RIDGING AT THE FUSED C5-C6 AND C6-C7 LEVELS CAUSING VERY MIL D SPINAL CANAL NARROWING. 4. VARIABLE MILD AND MODERATE NEURAL FORAMINAL STENOSES OUTLINED ABOVE SECONDARY TO HYPEROSTOTIC D EGENERATIVE CHANGES.
== END | disposition home or self-care (01) ==
LOC: RADCTMAIN 10:31
DX: M48.02 Spinal stenosis, cervical region (principal); M43.12 Spondylolisthesis, cervical region; M43.14 Spondylolisthesis, thoracic region; M47.812 Spondylosis without myelopathy or radiculopathy, cervical region; Z98.1 Arthrodesis status
CPT/HCPCS: 72125

== ENCOUNTER → 2019-04-28 | Outpatient (CLI) | payer MEDICARE ==
[2019-04-28 18:49] LABS: Appearance,Urine Clear (Clear); Bilirubin,Urine 4+ (Negative); Blood,Urine Negative (Negative); Color,Urine Yellow; Glucose,Urine (UA) Negative (Negative); Ketones,Urine Trace (Negative); Leukocyte Esterase,Urine Trace (Negative); Mucus,Urine Few /hpf; Nitrite,Urine Negative (Negative); PH, Urine 5.5 (5.0-8.0); Protein,Urine Trace (Negative); RBC,Urine <1 /hpf (0-5); Specific Gravity,Urine 1.034 (1.001-1.035); WBC,Urine <1 /hpf (0-5)
[2019-04-28 18:51] LABS: Basophils % (A) 1 %; Eosinophils % (A) 1 %; HCT 42.7 % (34.0-46.0); HGB 13.7 gm/dL (11.4-16.0); Lymphocytes # (A) 1.6 k/uL (1.0-4.8); Lymphocytes % (A) 43 %; MCH 30.2 pg (25.0-35.0); MCHC 32.1 g/dL (31.0-37.0); Mean Platelet Volume 9.4; Monocytes # (A) 0.3 k/uL (0-1.0); Monocytes % (A) 9 %; Neutrophils # (A) 1.7 k/uL (1.3-7.7); Neutrophils % (A) 44 %; Platelet Count 269 k/uL (150-450); RBC 4.54 m/uL (3.80-5.40); RDW 12.6 % (11.5-15.5); WBC 3.8 k/uL (3.8-10.6)
[2019-04-28 19:46] LABS: Erythrocyte Sedimentation Rate 8 mm/hr (0-20)
[2019-04-29 00:22] LABS: Protein, Total 6.1 g/dL (6.2-8.2)
[2019-04-29 00:30] LABS: ALT 16 U/L (8-44); AST 16 U/L (13-35); Albumin/Globulin Ratio 2.05 (1.60-3.17); Alkaline Phosphatase 101 U/L (41-126); Bilirubin, Conjugated <0.20 mg/dL (0.20-0.40); C Reactive Protein <0.4 mg/dL (0.0-0.8); Calcium 9.4 mg/dL (8.7-10.3); Carbon Dioxide 25.8 mmol/L (21.6-31.8); Chloride 105 mmol/L (96-109); Creatine Kinase 67 U/L (26-186); Glucose 90 mg/dL (70-110); LDH 197 U/L (120-246); Non-African American GFR(CKD) 58.7 (60.0-200.0); Phosphorus 2.5 mg/dL (2.4-5.1); Potassium 4.1 mmol/L (3.5-5.5); Sodium 141 mmol/L (135-145); Total Bilirubin 0.5 mg/dL (0.3-1.2); Total Protein 6.1 g/dL (6.2-8.2); Uric Acid 2.8 mg/dL (2.9-7.7)
[2019-04-29 01:09] LABS: Streptolysin O Ab(ASO) <25 IU/mL (0-200)
[2019-04-29 01:24] LABS: Hemoglobin A1C 5.3 % (4.0-6.0)
[2019-04-29 03:23] LABS: Cyclic Citrull Pep IgG Unit <0.5 U/mL; Cyclic Citrullinated Pep IgG NEGATIVE (NEGATIVE)
[2019-04-29 06:54] LABS: HLA B27 POSITIVE
[2019-05-01 10:41] LABS: Angiotensin-1 Converting Enz. 98 U/L (8-52)
[2019-05-01 14:00] LABS: Albumin 3.78 g/dL (3.80-4.90); Gamma Globulin 0.77 g/dL (0.70-1.50)
== END | disposition home or self-care (01) ==
LOC: LABWHC1 17:26
PROVIDERS: ATTEND Physical Medicine & Rehabilitation
DX: M50.120 Mid-cervical disc disorder, unspecified level (principal); M47.22 Other spondylosis with radiculopathy, cervical region; Z09 Encounter for follow-up examination after completed treatment for conditions other than malignant neoplasm; R20.2 Paresthesia of skin; F45.42 Pain disorder with related psychological factors; G96.8 Other specified disorders of central nervous system; G62.9 Polyneuropathy, unspecified; M25.511 Pain in right shoulder; M75.41 Impingement syndrome of right shoulder; M19.011 Primary osteoarthritis, right shoulder; M79.641 Pain in right hand; M79.642 Pain in left hand; M19.042 Primary osteoarthritis, left hand; M19.041 Primary osteoarthritis, right hand
CPT/HCPCS: 36415; 80053; 81001; 82164; 82248; 82306; 82310; 82550; 82553; 82607; 82652; 83036; 83516; 83615; 83970; 84100; 84165; 84207; 84425; 84439; 84443; 84550; 85025; 85652; 86038; 86060; 86140; 86200; 86235; 86431; 86618; 86812; 87522

== ENCOUNTER → 2019-08-24 | Outpatient (CLI) | payer MEDICARE ==
[2019-08-24 13:22] LABS: HCT 41.5 % (34.0-46.0); MCHC 31.3 g/dL (31.0-37.0); MCV 95.8 fL (80.0-100.0); Mean Platelet Volume 8.6; Platelet Count 252 k/uL (150-450); RBC 4.33 m/uL (3.80-5.40); RDW 13.3 % (11.5-15.5); WBC 5.4 k/uL (3.8-10.6)
[2019-08-24 19:13] LABS: African American GFR (CKD) 88.4 (60.0-200.0); Albumin 3.8 g/dL (3.80-4.90); Albumin/Globulin Ratio 1.9 (1.60-3.17); Anion Gap 4.7 mmol/L (4.00-12.00); BUN/Creat Ratio 26.25 Ratio (12.00-20.00); Calcium 9.3 mg/dL (8.7-10.3); Carbon Dioxide 30.3 mmol/L (21.6-31.8); Non-African American GFR(CKD) 76.3 (60.0-200.0); Potassium 5.2 mmol/L (3.5-5.5); Total Bilirubin 0.3 mg/dL (0.2-1.2); Total Protein 5.8 g/dL (6.2-8.2)
[2019-08-24 22:21] LABS: Hemoglobin A1C 5.3 % (4.0-6.0)
[2019-08-25 04:25] LABS: INR <0.90 (0.90-1.11); Prothrombin Time <9.9 sec (9.9-11.9)
== END | disposition home or self-care (01) ==
LOC: LABWHC1 11:16
DX: M16.11 Unilateral primary osteoarthritis, right hip (principal)
CPT/HCPCS: 36415; 80053; 83036; 85027; 85610

== ENCOUNTER → 2020-05-07 | Outpatient (CLI) | payer MEDICARE ==
--- NOTE | 2020-05-10 08:14 | BD ---
EXAMINATION TYPE: Axial Bone Density DATE OF EXAM: 05/07/2020 COMPARISON: NONE CLINICAL HISTORY: Height: 69 Weight: 198.7 FRAX RISK QUESTIONS: Alcohol (3 or more units per day): no Family History (Parent hip fracture): yes Glucocorticoids (More than 3mos): no (Ex: prednisone, prednisolone, methylprednisolone, dexamethasone, and hydrocortisone). History of Fracture in Adulthood: no Secondary Osteoporosis: 1. Type 1 Diabetes: no 2. Hyperthyroidism: no 3. Menopause before 45: no 4. Malnutrition: no 5. Chronic liver disease: no Rheumatoid Arthritis: no Current Tobacco Use: no RISK FACTORS HISTORY OF: Surgery to Spine/Hip(right/left)/Wrist (right/left): c spine fusion right hip surgery Family History of Osteoporosis: yes Active: no Diet low in dairy products/other sources of calcium: no Postmenopausal woman: age 48 Lost more than 2 inches in height since high school: no MEDICATIONS: scanned into pacs Additional History: EXAM MEASUREMENTS: Bone mineral densitometry was performed using the [employer] System. Bone mineral density as measured about the Lumbar spine is: ----- L1-L4(G/cm2): 1.271 T Score Values are as follows: ----- L2: 0.4 ----- L3: 1.7 ----- L4: 1.7 ----- L1-L4: 0.8 Bone mineral density has: increased 6.7 % since study of: 12.01.2005 Bone mineral density about the L hip (g/cm2): 0.829 T Score values are as follows: -----L Neck: -1.5 -----L Total: -1.7 Bone mineral density has: decreased -16.1 % since study of: 12.01.2005 IMPRESSION: Osteopenia (T Score between -2.5 and -1). There is slightly increased risk of fracture and the patient may be considered for treatment. Re-Screen 2-5 years. NOTE: T-SCORE=SD OF THE YOUNG ADULT MEAN.
== END ==
LOC: RADBDWWP 10:39
PROVIDERS: ATTEND Internal Medicine
DX: M85.89 Other specified disorders of bone density and structure, multiple sites (principal)
CPT/HCPCS: 77080

== ENCOUNTER → 2020-05-15 | Outpatient (CLI) | payer MEDICARE | LOC: LABWHC1 15:43 | PROVIDERS: ATTEND Orthopaedic Surgery | DX: T84.84XA Pain due to internal orthopedic prosthetic devices, implants and grafts, initial encounter (principal) | CPT/HCPCS: 36415; 85652; 86140 ==

== ENCOUNTER → 2020-07-09 | Outpatient (CLI) | payer MEDICARE ==
--- NOTE | 2020-07-10 09:21 | P.ARTDOP ---
Arterial Doppler LOWER EXTREMITY ARTERIAL DOPPLER: DATE OF SERVICE: 07/09/2020 Reason for study: Numbness both feet. Doppler waveforms: Multiphasic bilaterally throughout. Pulse volume recording: []. Pressure gradients: None. Ankle-brachial indices: Greater than 1 bilaterally. Toe brachial indices: [] on the right, [] on the left Impression: Normal study.
== END | disposition home or self-care (01) ==
LOC: RADUSWWP 08:29
PROVIDERS: ATTEND Internal Medicine
DX: I73.00 Raynaud's syndrome without gangrene (principal)
CPT/HCPCS: 93923

== ENCOUNTER → 2020-12-11 | Outpatient (CLI) | payer MEDICARE ==
[2020-12-11 23:54] LABS: Basophils # (A) 0.04 X 10*3/uL (0.00-0.10); Basophils % (A) 0.8 %; Eosinophils # (A) 0.04 X 10*3/uL (0.04-0.35); Eosinophils % (A) 0.8 %; HCT 43.8 % (37.2-46.3); HGB 13.5 g/dL (12.0-15.0); Lymphocytes % (A) 42.7 %; MCH 29.6 pg (27.0-32.0); MCHC 30.8 g/dL (32.0-37.0); MCV 96.1 fL (80.0-97.0); Mean Platelet Volume 13.4 fL (9.5-12.2); Monocytes # (A) 0.49 X 10*3/uL (0.20-1.00); Neutrophils # (A) 2.23 X 10*3/uL (1.80-7.70); Neutrophils % (A) 45.3 %; Platelet Count 227 X 10*3/uL (140-440); RBC 4.56 X 10*6/uL (4.10-5.20); RDW 13.6 % (11.5-14.5); WBC 4.92 X 10*3/uL (4.50-10.00)
[2020-12-12 05:12] LABS: % Iron Saturation 15.72 (12.00-45.00); Ferritin 27.6 ng/mL (10.0-291.0); T4, Free (Free Thyroxine) 1.06 ng/dL (0.800-1.800); Testosterone 10.4 ng/mL (7.00-45.62)
[2020-12-12 06:52] LABS: DHEA Sulfate 32.3 ug/dL (26.0-430.0)
[2020-12-12 15:10] LABS: Vitamin D, 1, 25-Dihydroxy 65 pg/mL (20 - 79)
[2020-12-13 07:17] LABS: Zinc, Serum 73 ug/dL (60-130)
== END | disposition home or self-care (01) ==
LOC: LABWHC1 14:21
PROVIDERS: ATTEND Physician Assistant
DX: D22.5 Melanocytic nevi of trunk (principal); L82.1 Other seborrheic keratosis; L72.8 Other follicular cysts of the skin and subcutaneous tissue; L65.9 Nonscarring hair loss, unspecified; L02.821 Furuncle of head [any part, except face]; L02.426 Furuncle of left lower limb; L74.519 Primary focal hyperhidrosis, unspecified; L02.425 Furuncle of right lower limb
CPT/HCPCS: 36415; 82306; 82627; 82652; 82728; 83540; 83550; 84402; 84403; 84439; 84443; 84630; 85025; 86038

== ENCOUNTER → 2021-01-31 | Outpatient (CLI) | payer MEDICARE ==
[2021-01-31 23:14] LABS: HCT 42.9 % (37.2-46.3); HGB 13.5 g/dL (12.0-15.0); MCH 29.3 pg (27.0-32.0); MCHC 31.5 g/dL (32.0-37.0); MCV 93.3 fL (80.0-97.0); Mean Platelet Volume 12.8 fL (9.5-12.2); Platelet Count 263 X 10*3/uL (140-440); RDW 13.2 % (11.5-14.5); WBC 4.55 X 10*3/uL (4.50-10.00)
[2021-02-01 01:43] LABS: T4, Free (Free Thyroxine) 1.28 ng/dL (0.800-1.800)
[2021-02-01 01:53] LABS: Protein, Total 6.5 g/dL (6.2-8.2)
== END | disposition home or self-care (01) ==
LOC: LABWHC1 15:53
PROVIDERS: ATTEND Psychiatry & Neurology Neurology
DX: G62.9 Polyneuropathy, unspecified (principal)
CPT/HCPCS: 36415; 82607; 84165; 84207; 84439; 84443; 84481; 85027

== ENCOUNTER → 2022-01-07 | Outpatient (CLI) | payer MEDICARE ==
[2022-01-07 14:53] LABS: Appearance,Urine Clear (Clear); Bilirubin,Urine Negative (Negative); Blood,Urine Negative (Negative); Color,Urine Yellow; Glucose,Urine (UA) Negative (Negative); Ketones,Urine Trace (Negative); Leukocyte Esterase,Urine Negative (Negative); Mucus,Urine Moderate /hpf; Nitrite,Urine Negative (Negative); PH, Urine 6.5 (5.0-8.0); Protein,Urine 1+ (Negative); RBC,Urine <1 /hpf (0-5); Specific Gravity,Urine 1.027 (1.001-1.035); Squamous Epithelial Cell,Urine <1 /hpf (0-4); WBC,Urine 1 /hpf (0-5)
[2022-01-07 17:55] LABS: Basophils # (A) 0.04 X 10*3/uL (0.00-0.10); Basophils % (A) 0.7 %; Eosinophils # (A) 0.08 X 10*3/uL (0.04-0.35); Eosinophils % (A) 1.3 %; HCT 45.9 % (37.2-46.3); HGB 14.6 g/dL (12.0-15.0); Immature Grans, Automated 0.2 %; Lymphocytes # (A) 2.15 X 10*3/uL (0.90-5.00); Lymphocytes % (A) 35.9 %; MCH 30.2 pg (27.0-32.0); MCHC 31.8 g/dL (32.0-37.0); Mean Platelet Volume 12.5 fL (9.5-12.2); Monocytes # (A) 0.57 X 10*3/uL (0.20-1.00); Monocytes % (A) 9.5 %; NRBC Per 100 WBC 0 /100 WBCS (0.0-0.0); Neutrophils # (A) 3.14 X 10*3/uL (1.80-7.70); Neutrophils % (A) 52.4 %; Platelet Count 238 X 10*3/uL (140-440); RBC 4.83 X 10*6/uL (4.10-5.20); RDW 13.8 % (11.5-14.5); WBC 5.99 X 10*3/uL (4.50-10.00)
[2022-01-07 18:31] LABS: INR 0.88 (0.90-1.11)
[2022-01-07 18:33] LABS: ALT 24 U/L (8-44); AST 21 U/L (13-35); African American GFR (CKD) 66.6 (60.0-200.0); Albumin 4.3 g/dL (3.8-4.9); Albumin/Globulin Ratio 1.57 (1.60-3.17); Alkaline Phosphatase 102 U/L (41-126); Calcium 9.6 mg/dL (8.7-10.3); Carbon Dioxide 27.1 mmol/L (20.0-27.5); Chloride 104 mmol/L (96-109); Chol/HDL Ratio 2.57 Ratio; Globulin 2.7 g/dL (1.6-3.3); Glucose 99 mg/dL (70-110); LDL Cholesterol,Calculated 68.8 mg/dL (0.0-131.0); Non-African American GFR(CKD) 57.4 (60.0-200.0); Potassium 4.4 mmol/L (3.5-5.5); Sodium 143 mmol/L (135-145)
== END | disposition home or self-care (01) ==
LOC: LABWHC1 13:06
PROVIDERS: ATTEND Orthopaedic Surgery
DX: Z01.812 Encounter for preprocedural laboratory examination (principal); M17.11 Unilateral primary osteoarthritis, right knee; E78.2 Mixed hyperlipidemia; E55.9 Vitamin D deficiency, unspecified
CPT/HCPCS: 36415; 80053; 80061; 81001; 82306; 83036; 84443; 85025; 85610

== ENCOUNTER → 2022-05-29 | Outpatient (CLI) | payer MEDICARE ==
--- NOTE | 2022-05-29 12:58 | XR ---
EXAMINATION TYPE: XR Hip Complete RT DATE OF EXAM: 05/29/2022 COMPARISON: NONE HISTORY: Pain TECHNIQUE: One view submitted. FINDINGS: There is postsurgical change in near anatomic alignment. There is soft tissue edema and emphysema. IMPRESSION: 1. Postoperative change. Appears in near-anatomic alignment.
== END | disposition home or self-care (01) ==
LOC: RADXRMAIN 12:28
PROVIDERS: ATTEND Internal Medicine
DX: M25.551 Pain in right hip (principal); Z98.890 Other specified postprocedural states
CPT/HCPCS: 73502

== ENCOUNTER → 2022-08-04 | Outpatient (CLI) | payer MEDICARE ==
--- NOTE | 2022-08-04 09:31 | CT ---
EXAMINATION TYPE: CT hip RT wo con DATE OF EXAM: 08/04/2022 COMPARISON: Radiograph 05/29/2022 HISTORY: 71-year-old female Right hip pain. No recent injury. History of hip replacement. TECHNIQUE: Contiguous axial scanning of the right hip without IV contrast. Coronal and sagittal recon structions performed. 3-D reconstructions generated on a dedicated independent workstation. CT DLP: 1067.5 mGycm Automated exposure control for dose reduction was used. FINDINGS: Right hip total arthroplasty. Both acetabular cup and femoral stem components of the prosthesis are w ell-seated without periprosthetic fracture. Alignment anatomic. No periprosthetic fluid collection is seen. Polypropylene liner appears uniform and intact. Numerous pelvic phleboliths. Moderate stool within the visualized right side of the colon with mild d iverticulosis. IMPRESSION: UNCOMPLICATED APPEARANCE TO THE RIGHT HIP TOTAL ARTHROPLASTY.
--- NOTE | 2022-08-04 14:43 | NM ---
EXAMINATION TYPE: NM bone 3 phase DATE OF EXAM: 08/04/2022 COMPARISON: 08/04/2022 CLINICAL INDICATION: Female, 71 years old with history of Z96.641, T84.84XA, M25.551; Triple phase bone scintigraphy was performed following the injection of 21.9 mCi Tc 99m MDP. Immedia te images and 5.5 hours post injection images acquired. FINDINGS: There is no significant abnormal accumulation of radiotracer within the right hip prostheses. There i s symmetric flow to bilateral hip. [id number] intensity uptake involving the left hip is sugges tive of post arthritic change. IMPRESSION: No scintigraphic evidence of loosening or infection.
== END | disposition home or self-care (01) ==
LOC: RADNMMAIN 07:28
PROVIDERS: ATTEND Orthopaedic Surgery
DX: T84.84XA Pain due to internal orthopedic prosthetic devices, implants and grafts, initial encounter (principal); M25.551 Pain in right hip; Z96.641 Presence of right artificial hip joint
CPT/HCPCS: 85379; 85652; 86140; 73700; 78315; A9503

== ENCOUNTER → 2022-09-10 | Outpatient (CLI) | payer MEDICARE ==
--- NOTE | 2022-09-10 12:14 | CT ---
EXAMINATION TYPE: CT chest wo con CT DLP: 333.2 mGycm, Automated exposure control for dose reduction was used. DATE OF EXAM: 09/10/2022 11:47 AM COMPARISON: None CLINICAL INDICATION:Female, 72 years old with history of R06.09 dyspnea; PHH, Other forms of dyspnea TECHNIQUE: Multiple axial images were obtained through the chest without IV contrast. Lack of IV or o ral contrast limits evaluation of solid and hollow organ viscera. . Coronal and sagittal reformats re viewed. FINDINGS: LUNGS/ PLEURA: No pleural effusion, pneumothorax, focal consolidation. No suspicious pulmonary nodule s or masses. Mild centrilobular emphysematous changes. AIRWAY: Patent and unremarkable.. HEART: Size within normal limits. No pericardial effusion. MEDIASTINUM: No evidence of adenopathy. VASCULATURE: No aortic aneurysm. MUSCULOSKELETAL: Mild disc degeneration changes are present throughout the thoracolumbar spine. No ac alicia osseous abnormality. Partial visualization of anterior cervical fusion hardware. SOFT TISSUES/LYMPH NODES: Unremarkable. LOWER NECK: No significant findings. UPPER ABDOMEN: Moderate sized hiatal hernia. Left hepatic lobe 1.2 cm cyst. IMPRESSION: 1. No acute thoracic process. 2. Mild COPD changes. 3. Moderate-sized hiatal hernia.
== END | disposition home or self-care (01) ==
LOC: RADCTMAIN 11:32
PROVIDERS: ATTEND Internal Medicine
DX: J44.9 Chronic obstructive pulmonary disease, unspecified (principal); K44.9 Diaphragmatic hernia without obstruction or gangrene; R06.09 Other forms of dyspnea
CPT/HCPCS: 71250

== ENCOUNTER → 2022-10-13 | Outpatient (CLI) | payer MEDICARE | LOC: CPPFTMAIN 13:13 | PROVIDERS: ATTEND Internal Medicine | DX: J44.9 Chronic obstructive pulmonary disease, unspecified (principal); Z91.041 Radiographic dye allergy status; Z91.02 Food additives allergy status; Z91.038 Other insect allergy status | CPT/HCPCS: 94060; 94726; 94729 ==

== ENCOUNTER 2023-06-21 13:41 | Emergency (ER) | payer MEDICARE ==
--- NOTE | 2023-06-21 14:10 | ED ---
General Adult HPI - General Source: patient, RN notes reviewed Mode of arrival: ambulatory Limitations: no limitations <Marcial Dillon - Last Filed: 06/21/23 14:09> <Arnold Lerma - Last Filed: 06/21/23 21:48> - General Stated complaint: Abd pain Time Seen by Provider: 06/21/23 13:59 - History of Present Illness Initial comments: Quick [id number] female presents emergency department from outpatient CT for evaluation. Patient states has been having creasing abdominal pain saw PCP scheduled for outpatient CT but sent her here because she had an allergy to bone scan dye in the past. Patient states she has had increasing abdominal pain nausea. (Marcial Dillon) Patient is a 72-year-old female who presents emergency department complaining of abdominal pain. Has been ongoing for weeks to months. Was over in [place] to get an outpatient CT and then sent here for further evaluation. Denies any chest pain or shortness of breath. Endorses intermittent nausea. Endorses intermittent diarrhea. No known sick contacts. Presents for further evaluation at this time. No acute change in the last few days. Symptoms come and go with no known palliative or provocative factors. Presents for further evaluation. I evaluate the patient when she was placed in a hallway bed. Originally seen as a quick note. (Anrold Lerma) - Related Data Home Medications Medication Instructions Recorded Confirmed Dextroamphetamine/Amphetamine 30 mg PO BID 10/14/14 08/29/16 [Adderall] Etodolac [Lodine] 400 mg PO AC-BID 10/14/14 08/29/16 ALPRAZolam [Xanax] 0.25 mg PO BID PRN 03/30/16 08/29/16 Gabapentin [Neurontin] 600 mg PO TID 03/30/16 08/29/16 Minocycline HCl [Minocin] 50 mg PO DAILY 08/21/16 08/29/16 Previous Rx's Medication Instructions Recorded DULoxetine HCL [Cymbalta] 120 tab PO DAILY #60 09/01/16 Divalproex ER [Depakote ER] 1,000 mg PO HS #60 tab 09/01/16 Metoprolol Tartrate [Lopressor] 12.5 mg PO BID #60 tab 09/01/16 traZODone HCL [Desyrel] 50 mg PO HS PRN #30 tab 09/01/16 Dicyclomine [Bentyl] 10 mg PO TID PRN 7 Days #21 capsule 06/21/23 Allergies Allergy/AdvReac Type Severity Reaction Status Date / Time divalproex sodium Allergy Unknown Verified 06/21/23 14:22 [From Depakote] Iodinated Contrast Media Allergy Unknown Verified 08/29/16 17:17 [Iodinated Contrast Media - Oral and] bee venom protein (honey bee) AdvReac Rash/Hives Verified 06/21/23 14:22 venom-wasp [wasp venom] AdvReac Rash/Hives Verified 08/29/16 17:17 Review of Systems ROS Other: All systems not noted in ROS Statement are negative. <Marcial Dillon - Last Filed: 06/21/23 14:09> ROS Other: All systems not noted in ROS Statement are negative. <Arnold Lerma - Last Filed: 06/21/23 21:48> ROS Statement: Those systems with pertinent positive or pertinent negative responses have been documented in the HPI. Review of Systems: CONST: Denies fever EYES: Denies blurry vision ENT: Denies nasal congestion C/V: Denies Chest pain RESP: Denies shortness of breath GI: Endorses chronic abdominal pain : Denies dysuria SKIN: Denies rash. MSK: Denies joint pain. NEURO: Denies headache (Arnold Lerma) Past Medical History Additional Past Medical History / Comment(s): closed head injury, shingles History of Any Multi-Drug Resistant Organisms: None Reported Past Surgical History: Joint Replacement Additional Past Surgical History / Comment(s): Left knee arthroplasty, R hip rep lacement Past Anesthesia/Blood Transfusion Reactions: No Reported Reaction Past Psychological History: ADD/ADHD, Anxiety, Depression, Panic Disorder, PTSD - Past Family History Father Additional Family Medical History / Comment(s): Father at age 86 from COPD. Mother Additional Family Medical History / Comment(s): Mother is alive at age 97 with dementia. Brother(s) Additional Family Medical History / Comment(s): Patient has 1 brother and 2 sisters and does not know their medical history. <Marcial Dillon - Last Filed: 06/21/23 14:09> General Exam <Marcial Dillon - Last Filed: 06/21/23 14:09> <Arnold Lerma - Last Filed: 06/21/23 21:48> - General Exam Comments Initial Comments: Visual Physical Exam Vital signs reviewed General: Well-appearing, nontoxic, no acute distress. Head: Normocephalic, atraumatic Eyes: PERRLA, EOMI ENT: Airway patent Chest: Nonlabored breathing Skin: No visual rash, normal skin tone Neuro: Alert and oriented 3 Musculoskeletal: No gross abnormalities (Marcial Dillon) General: Appears in no acute distress. HEAD: Normal with no signs of head trauma. EYES: PERRLA, EOMI, conjunctiva normal, no discharge. ENT: Hearing grossly intact, normal oropharynx. RESPIRATORY: Clear breath sounds bilaterally. No wheezes, rales, or rhonchi. C/V: Regular rate and rhythm. S1 and S2 auscultated, no edema, peripheral pulses 2+ and intact throughout ABD: Abdomen is soft, nondistended, with minimal tenderness that is nonfocal. No guarding. No rebound tenderness. No peritoneal signs. EXT: Normal range of motion, no obvious deformity SKIN: No rashes or lesions observed on exposed skin. NEURO: Alert and oriented x 4. (Arnold Lerma) Course Vital Signs 06/21/23 06/21/23 14:18 20:22 Temperature 98.6 F Pulse Rate 82 69 Respiratory 18 18 Rate Blood Pressure 105/71 110/49 O2 Sat by Pulse 100 100 Oximetry Medical Decision Making <Marcial Dillon - Last Filed: 06/21/23 14:09> - Lab Data Result diagrams: 06/21/23 14:30 06/21/23 18:58 - EKG Data -: EKG Interpreted by Me <Arnold Lerma - Last Filed: 06/21/23 21:48> - Medical Decision Making I completed the quick note portion of this chart signed Marcial Dillon PA-C (Marcial Dillon) Was pt. sent in by a medical professional or institution (ROULA Mcallister, DISABILITY COORDINATOR, urgent care, hospital, or fpc...) When possible be specific @ -No Did you speak to anyone other than the patient for history (EMS, parent, family, police, friend...)? What history was obtained from this source @ -No Did you review nursing and triage notes (agree or disagree)? Why? @ -I reviewed and agree with nursing and triage notes Were old charts reviewed (outside hosp., previous admission, EMS record, old EKG, old radiological studies, urgent care reports/EKG's, fpc records)? Report findings @ -Old charts reviewed Differential Diagnosis (chest pain, altered mental status, abdominal pain women, abdominal pain men, vaginal bleeding, weakness, fever, dyspnea, syncope, headache, dizziness, GI bleed, back pain, seizure, CVA, palpatations, mental health, musculoskeletal)? @ -Differential Abdominal Pain Men: Appendicitis, cholecystitis, diverticulosis, ischemic bowel, pancreatitis, hepatitis, UTI, gastroenteritis, AAA, incarcerated hernia, bowel obstruction, constipation, inflammatory bowel, hepatitis, peptic ulcer disease, splenic infarction, perforated viscus, testicular torsion, this is not meant to be an all-inclusive list EKG interpreted by me (3pts min.). @ -As above X-rays interpreted by me (1pt min.). @ -None done CT interpreted by me (1pt min.). @ -CT abdomen/pelvis shows no obvious acute intra-abdominal process. Patient does have a large hiatal hernia. U/S interpreted by me (1pt. min.). @ -None done What testing was considered but not performed or refused? (CT, X-rays, U/S, labs)? Why? @ -None What meds were considered but not given or refused? Why? @ -None Did you discuss the management of the patient with other professionals (professionals i.e. , PA, DISABILITY COORDINATOR, lab, RT, psych nurse, addiction social worker, senior policy advisor, teacher, state highway police officer, security shift manager)? Give summary @ -No Was smoking cessation discussed for >3mins.? @ -No Was critical care preformed (if so, how long)? @ -No Were there social determinants of health that impacted care today? How? (Homelessness, low income, unemployed, alcoholism, drug addiction, transportation, low edu. Level, literacy, decrease access to med. care, fci, rehab)? @ -No Was there de-escalation of care discussed even if they declined (Discuss DNR or withdrawal of care, Hospice)? DNR status @ -No What co-morbidities impacted this encounter? (DM, HTN, Smoking, COPD, CAD, Cancer, CVA, ARF, Chemo, Hep., AIDS, mental health diagnosis, sleep apnea, morbid obesity)? @ -Chronic abdominal pain Was patient admitted / discharged? Hospital course, mention meds given and route, prescriptions, significant lab abnormalities, going to OR and other pertinent info. @ -Based on patient's presentation and physical exam, presents emergency department complaining of abdominal pain. Somewhat chronic. We will obtain abdominal labs as well as CT as patient was due to have a CT outpatient earlier today. Vital signs within acceptable limits. Patient given precontrast medi cations as well as IV Zofran and fluids. EKG shows no signs of acute ischemia. Imaging unremarkable. Labs unremarkable. After the patient. She expressed understanding. She was instructed to follow- up with her PCP. She was in agreement this plan. Strict return precautions discussed. I instructed the patient to follow up with their PCP in the next 1-3 days. I explained that the patient should return to the emergency department if they experience any worsening symptoms. Strict return precautions were discussed with the patient. The patient expressed understanding of these instructions. I answered all questions that the patient had. The patient was discharged home in good condition with their prescriptions and follow up information. Undiagnosed new problem with uncertain prognosis? @ -No Drug Therapy requiring intensive monitoring for toxicity (Heparin, Nitro, Insulin, Cardizem)? @ -No Were any procedures done? @ -No Diagnosis/symptom? @ -Acute on chronic abdominal pain of unknown etiology Acute, or Chronic, or Acute on Chronic? @ -Acute on chronic Uncomplicated (without systemic symptoms) or Complicated (systemic symptoms)? @ -Complicated Side effects of treatment? @ -No Exacerbation, Progression, or Severe Exacerbation? @ -No Poses a threat to life or bodily function? How? (Chest pain, USA, ID, pneumonia, PE, COPD, DKA, ARF, appy, cholecystitis, CVA, Diverticulitis, Homicidal, Suicidal, threat to staff... and all critical care pts) @ -Unlikely (Arnold Lerma) - Lab Data Lab Results 06/21/23 06/21/23 06/21/23 Range/Units 14:30 15:23 18:58 WBC 9.1 (3.8-10.6) k/uL RBC 4.91 (3.80-5.40) m/uL Hgb 14.9 (11.4-16.0) gm/dL Hct 45.7 (34.0-46.0) % MCV 93.1 (80.0-100.0) fL MCH 30.3 (25.0-35.0) pg MCHC 32.5 (31.0-37.0) g/dL RDW 13.3 (11.5-15.5) % Plt Count 181 (150-450) k/uL MPV 10.4 Neutrophils % 70 % Lymphocytes % 22 % Monocytes % 7 % Eosinophils % 1 % Basophils % 0 % Neutrophils # 6.4 (1.3-7.7) k/uL Lymphocytes # 1.9 (1.0-4.8) k/uL Monocytes # 0.6 (0-1.0) k/uL Eosinophils # 0.1 (0-0.7) k/uL Basophils # 0.0 (0-0.2) k/uL Sodium 137 (137-145) mmol/L Potassium 3.8 (3.5-5.1) mmol/L Chloride 108 H (98-107) mmol/L Carbon Dioxide 24 (22-30) mmol/L Anion Gap 5 mmol/L BUN 17 (7-17) mg/dL Creatinine 0.68 (0.52-1.04) mg/dL Est GFR (CKD-EPI)AfAm >90 (>60 ml/min/1.73 sqM) Est GFR (CKD-EPI)NonAf 89 (>60 ml/min/1.73 sqM) Glucose 84 (74-99) mg/dL Plasma Lactic Acid Alden 1.5 (0.7-2.0) mmol/L Calcium 8.8 (8.4-10.2) mg/dL Total Bilirubin 1.1 (0.2-1.3) mg/dL AST 21 (14-36) U/L ALT 17 (4-34) U/L Alkaline Phosphatase 82 (38-126) U/L Total Protein 5.7 L (6.3-8.2) g/dL Albumin 3.3 L (3.5-5.0) g/dL Lipase 42 (23-300) U/L Influenza Type A (PCR) (Not Detectd) Influenza Type B (PCR) (Not Detectd) RSV (PCR) (Not Detectd) SARS-CoV-2 (PCR) (Not Detectd) 06/21/23 Range/Units 20:22 WBC (3.8-10.6) k/uL RBC (3.80-5.40) m/uL Hgb (11.4-16.0) gm/dL Hct (34.0-46.0) % MCV (80.0-100.0) fL MCH (25.0-35.0) pg MCHC (31.0-37.0) g/dL RDW (11.5-15.5) % Plt Count (150-450) k/uL MPV Neutrophils % % Lymphocytes % % Monocytes % % Eosinophils % % Basophils % % Neutrophils # (1.3-7.7) k/uL Lymphocytes # (1.0-4.8) k/uL Monocytes # (0-1.0) k/uL Eosinophils # (0-0.7) k/uL Basophils # (0-0.2) k/uL Sodium (137-145) mmol/L Potassium (3.5-5.1) mmol/L Chloride (98-107) mmol/L Carbon Dioxide (22-30) mmol/L Anion Gap mmol/L BUN (7-17) mg/dL Creatinine (0.52-1.04) mg/dL Est GFR (CKD-EPI)AfAm (>60 ml/min/1.73 sqM) Est GFR (CKD-EPI)NonAf (>60 ml/min/1.73 sqM) Glucose (74-99) mg/dL Plasma Lactic Acid Alden (0.7-2.0) mmol/L Calcium (8.4-10.2) mg/dL Total Bilirubin (0.2-1.3) mg/dL AST (14-36) U/L ALT (4-34) U/L Alkaline Phosphatase (38-126) U/L Total Protein (6.3-8.2) g/dL Albumin (3.5-5.0) g/dL Lipase (23-300) U/L Influenza Type A (PCR) Not Detected (Not Detectd) Influenza Type B (PCR) Not Detected (Not Detectd) RSV (PCR) Not Detected (Not Detectd) SARS-CoV-2 (PCR) Not Detected (Not Detectd) - EKG Data EKG Comments: 12-lead Electrocardiogram Interpretation Note EKG was reviewed and interpreted by myself. 12-lead ECG performed at 2128 is interpreted by me as revealing normal sinus rhythm at a rate of 69 beats per minute. Post is normal. CT interval is 150 ms, QRS duration is 90 ms, QTc is 452 ms.. There were no ST or T wave abnormalities to suggest myocardial ischemia or injury. R wave progression across the precordium was satisfactory. By my interpretation this EKG is non-diagnostic for acute ischemia. (Arnold Lerma) Disposition <Marcial Dillon - Last Filed: 06/21/23 14:09> Is patient prescribed a controlled substance at d/c from ED?: No Time of Disposition: 21:46 <Arnold Lerma - Last Filed: 06/21/23 21:48> Clinical Impression: Abdominal pain of unknown etiology, Chronic pain Disposition: HOME SELF-CARE Condition: Good Instructions (If sedation given, give patient instructions): Abdominal Pain (ED) Prescriptions: Dicyclomine [Bentyl] 10 mg PO TID PRN 7 Days #21 capsule PRN Reason: Pain Referrals: Marc Sosa MD [Primary Care Provider] - 1-2 days
[2023-06-21 14:36] VITALS: TEMP 98.6
[2023-06-21 15:15] LABS: Basophils % (A) 0 %; Eosinophils # (A) 0.1 k/uL (0-0.7); Eosinophils % (A) 1 %; HCT 45.7 % (34.0-46.0); HGB 14.9 gm/dL (11.4-16.0); Lymphocytes # (A) 1.9 k/uL (1.0-4.8); Lymphocytes % (A) 22 %; MCH 30.3 pg (25.0-35.0); MCHC 32.5 g/dL (31.0-37.0); MCV 93.1 fL (80.0-100.0); Mean Platelet Volume 10.4; Monocytes # (A) 0.6 k/uL (0-1.0); Monocytes % (A) 7 %; Neutrophils # (A) 6.4 k/uL (1.3-7.7); Neutrophils % (A) 70 %; Platelet Count 181 k/uL (150-450); RBC 4.91 m/uL (3.80-5.40); RDW 13.3 % (11.5-15.5); WBC 9.1 k/uL (3.8-10.6)
[2023-06-21] MEDS: SODIUM CHLORIDE 0.9% 1,000 ML IV STA (19:06)
[2023-06-21] MEDS: methylPREDNISolone SOD SUCCI 125 MG/2 ML VIAL IV STA (19:08)
[2023-06-21] MEDS: diphenhydrAMINE 50 MG/ML 1 ML VIAL IVP STA (19:08)
[2023-06-21] MEDS: ONDANSETRON 4 MG/2 ML VIAL IVP STA (19:08)
[2023-06-21] MEDS: FAMOTIDINE 20 MG/2 ML VIAL IV STA (19:08)
[2023-06-21] MEDS: KETOROLAC 15 MG/ML 1 ML VIAL IVP STA (19:08)
[2023-06-21 19:22] LABS: ALT 17 U/L (4-34); AST 21 U/L (14-36); African American GFR (CKD) >90 (>60 ml/min/1.73 sqM); Albumin 3.3 g/dL (3.5-5.0); Alkaline Phosphatase 82 U/L (38-126); Anion Gap 5 mmol/L; Blood Urea Nitrogen 17 mg/dL (7-17); Calcium 8.8 mg/dL (8.4-10.2); Carbon Dioxide 24 mmol/L (22-30); Chloride 108 mmol/L (98-107); Glucose 84 mg/dL (74-99); Lipase 42 U/L (23-300); Non-African American GFR(CKD) 89 (>60 ml/min/1.73 sqM); Potassium 3.8 mmol/L (3.5-5.1); Sodium 137 mmol/L (137-145); Total Bilirubin 1.1 mg/dL (0.2-1.3); Total Protein 5.7 g/dL (6.3-8.2)
--- NOTE | 2023-06-21 20:23 | CT ---
EXAMINATION TYPE: CT abdomen pelvis w con CT DLP: 1663.4 mGycm, Automated exposure control for dose reduction was used. DATE OF EXAM: 06/21/2023 8:03 PM COMPARISON: CT abdomen pelvis most recent from 09/10/2022. CLINICAL INDICATION:Female, 72 years old with history of abdominal pain, generalized; Abdominal pain starting linda and diarrhea starting last night. TECHNIQUE: Axial CT abdomen pelvis w con;Sagittal and coronal reformats were created on a separate w orkstation. Contrast used:100 mL of Isovue 300 with IV Contrast, (none if empty) Oral contrast used: without Oral Contrast (none if empty) FINDINGS: LOWER CHEST: Unremarkable ABDOMEN LIVER: Left hepatic lobe probable cyst. Unchanged from prior. GALLBLADDER AND BILE DUCTS: Gallbladder surgically absent. PANCREAS: Unremarkable. SPLEEN: Unremarkable. ADRENAL GLANDS: Right adrenal nodule measuring 16 mm. No left adrenal nodule. KIDNEYS AND URETERS: No evidence of hydronephrosis or renal calculus. The ureters are unremarkable. PELVIS BLADDER: Unremarkable REPRODUCTIVE: Unremarkable. ABDOMEN & PELVIS STOMACH AND BOWEL: No evidence of bowel obstruction. Moderate to large hiatal hernia. The appendix is normal. PERITONEUM/RETROPERITONEUM: No evidence of pneumoperitoneum or free fluid. VASCULATURE: No evidence of aortic aneurysm. MUSCULOSKELETAL: No acute osseous abnormalities. Moderate disc degeneration changes are present throu ghout the thoracolumbar spine. Severe degeneration changes left hip with [id number] articulation an d subchondral sclerosis. Right hip arthroplasty changes with hardware intact. Scoliosis changes spine with levoscoliosis apex L4. LYMPH NODES: No gross evidence for lymphadenopathy. SOFT TISSUE/ABDOMINAL WALL: Unremarkable IMPRESSION: 1. No evidence for acute abdominal process. 2. Moderate to large hiatal hernia. 3. Right adrenal nodule which is indeterminate. Stable back to at least 09/10/2022. Persistent testic ular likely represent benign lipid rich adrenal adenoma in the absence of risk factors.
[2023-06-21 22:24] VITALS: BP 128/72; PULSE 77; RESP 16
== END 2023-06-21 22:11 | disposition home or self-care (01) ==
LOC: EC 13:41
DX: G89.29 Other chronic pain (principal); K44.9 Diaphragmatic hernia without obstruction or gangrene; Z11.52 Encounter for screening for COVID-19; Z91.030 Bee allergy status; Z91.041 Radiographic dye allergy status; Z88.8 Allergy status to other drugs, medicaments and biological substances
CPT/HCPCS: 93005; 80053; 83605; 83690; 85025; 87636; 74177; 99284; 96374; 96375 ×4; 96361 ×3; J1200; J2405; J3490; J1885; Q9967; J2919; 36415

== ENCOUNTER → 2023-06-21 | Outpatient (CLI) | payer MEDICARE | END | disposition home or self-care (01) | LOC: RADCTMAIN 13:09 | PROVIDERS: ATTEND Internal Medicine | DX: Z53.9 Procedure and treatment not carried out, unspecified reason (principal) ==

== ENCOUNTER → 2023-07-29 | Outpatient (CLI) | payer MEDICARE ==
[2023-07-29 13:31] VITALS: BP 107/63; PULSE 63; RESP 16; TEMP 98.7
--- NOTE | 2023-07-29 14:37 | P.PAINPG ---
PQRS Measure Charge Sheet Comment: HISTORY OF PRESENT ILLNESS: A 72 yr old female as a referral from Dr Sosa presents today w severe and chronic LBP > 1 yr secondary to DDD, spondylosis and facet arthropathy without myelopathy for evaluation. Pt states pain level is provoked at 9 /10 in intensity, constant, localized in the lumbar spine, predominantly axial, achy in character w occasional shooting pain towards the groin. Pain is provoked by over activity. Pain is alleviated by PT x 6 wks which ended in Summer 2022, physician guided home stretches every morning since Summer 2022, manual massage, medications, CBD topical, repositioning and rest . Oswestry axial pain score at 27. Pt had long talk about limited family in the area, how she needs to go to [facility] for surgeries and how pain medication causes constipation ever since she had knee surgery. Pt states she has a muscle relaxer at home. Will prescribe short course of Suffern 5/325mg #15 to take w muscle relaxer to potentiate the pain medication. PMH: OA, CHI, Shingles, MDD/ Anxiety/ PTSD/ ADD/ ADHD PSH: L Knee Arthroplasty, R Hip Replacement SH: Negative x3 FH: Fa- COPD/ age 88. Mo- Dementia. Bro- Unknown. Sis x2- Unknown All: See list Meds: See list REVIEW OF ORGAN SYSTEMS: CONSTITUTIONAL: No fevers or chills. No recent weight loss. NEUROLOGICAL: + numbness and tingling along the distal extremities. No seizure disorders or headaches. MUSCULOSKELETAL: + pain PSYCHIATRIC: Denies current depression or suicidal thoughts. Physical Examinations : Constitutional : Cooperative , not in acute distress . Neurologic : Cranial nerve II to XII intact. No focal neurological deficits. Psychiatric : alert & oriented x 3. Matching mood & appropriate affect. Judgment & insight intact. Musculoskeletal : Cervical Spine Motor strength in the deltoid and biceps: Normal right side. Normal Left side Motor strength biceps and the wrist extensors: Normal right side . Normal left side Motor strength in the triceps muscle: Normal right side. Normal left side Deep tendon reflexes: Normal at the biceps. Normal at Brachioradialis. Normal at triceps Vertebral body tenderness to deep palpation over Cervical facet loading test: positive bilaterally Spurling test: positive bilaterally Neck distraction test: positive bilaterally Deborah sign: positive bilaterally Lumbar spine Motor strength lower extremities ,thigh and legs 5/5 Right side , 5/5 Left side Deep tendon reflexes : Normal Knee Jerk. Normal Ankle Jerk Vertebral body tenderness over L3 Godinez Test positive BL L3-L4 Lumbar facet Loading Test: positive Right / positive Left Range of motion of the lumbar spine Flexion 30 degrees, extension 10 degrees Straight Leg Raise test: Left/ Right positive at degrees Colt test: positive right / positive left. Severe tenderness over the Sacroiliac joint on the Right / Left sides Gaenslen test: positive bilaterally Seated flexion test: positive bilaterally. Sacral spine : Severe tenderness over the Sacroiliac joint: right side / left side Range of motion: Flexion of the lumbar spine <60 degrees Range of motion: Extension of the lumbar spine <20 degrees Gaenslen's Test positive Colt test: positive right side / left side Thigh Thrust Test Sacral Thrust Test Imaging: MRI noncontrast of the lumbar spine from 11/24/2022 reviewed Assessment/ Plan : Lumbar DDD Recommendation of VIOLETA L3-L4 #3. May need a series of injections for optimal pain relief. Risks, benefits of procedure discussed and patient verbalized understanding. Admits to anti- coagulant use or medical history of diabetes. Protocol for discontinuation/ continuation of medications ricco procedure discussed. Minimal anesthesia provided, if clinically indicated, consisting of Versed and Fentanyl. Suffern 5/325mg #15 NR Use, side effects, adverse reactions, safe storage discussed. All questions answered. I have spent greater than 30 minutes on patient care today. Dr Medel was available by phone for the evaluation of this patient. The time was used to review the medical records including relevant urine studies and Prescription history (MAPs), review of the available imaging, evaluation and examination of the patient, coordination of care with the medical staff and if applicable referring physicians, as well as creation of the medical record PQRS Narrative: Smoking Status Never smoker Home Medications: Ambulatory Orders Dextroamphetamine/Amphetamine [Adderall] 30 mg PO BID 10/14/14 Etodolac [Lodine] 400 mg PO AC-BID 10/14/14 ALPRAZolam [Xanax] 0.25 mg PO BID PRN 03/30/16 Gabapentin [Neurontin] 600 mg PO TID 03/30/16 Minocycline HCl [Minocin] 50 mg PO DAILY 08/21/16 DULoxetine HCL [Cymbalta] 120 tab PO DAILY #60 09/01/16 Divalproex ER [Depakote ER] 1,000 mg PO HS #60 tab 09/01/16 Metoprolol Tartrate [Lopressor] 12.5 mg PO BID #60 tab 09/01/16 traZODone HCL [Desyrel] 50 mg PO HS PRN #30 tab 09/01/16 Dicyclomine [Bentyl] 10 mg PO TID PRN 7 Days #21 capsule 06/21/23 HYDROcodone/APAP 5-325MG [Suffern 5-325] 1 tab PO Q4HR PRN 3 Days #15 tab 07/29/23 Controlled Substance Measures - Controlled Substance Measures Is patient prescribed a controlled substance at discharge?: Yes When asked, does pt state using other controlled substances?: Yes If prescribed controlled substance>3 days was MAPS reviewed?: Prescribed <3 Days If Rx opioid, was Start Talking consent form obtained?: Yes Was information provided regarding opioid addiction?: Yes
== END ==
LOC: PNWHC3 12:19
PROVIDERS: ATTEND Specialist
DX: M48.02 Spinal stenosis, cervical region (principal); M51.16 Intervertebral disc disorders with radiculopathy, lumbar region; M47.26 Other spondylosis with radiculopathy, lumbar region; Z88.8 Allergy status to other drugs, medicaments and biological substances; Z91.030 Bee allergy status; Z91.041 Radiographic dye allergy status
CPT/HCPCS: 99202

== ENCOUNTER 2023-08-05 09:02 | Day surgery (SDC) | payer MEDICARE ==
[~2023-08-05 09:02] MED LIST: LACTATED RINGERS 1,000 ML IV SCH
[2023-08-05 09:21] VITALS: TEMP 97.8
[2023-08-05] MEDS ORDERED: methylPREDNISolone ACETATE 80 MG/ML 1 ML VIAL ONE (09:52)
--- NOTE | 2023-08-05 10:01 | P.PCN ---
Date of Procedure: 08/05/23 Procedure(s) Performed: PREOPERATIVE DIAGNOSIS: 1- Lumbar Degenerative Disc Diseases 2-Lumbar spondylosis with Facet arthropathy without myelopathy. 3-lumbar spinal stenosis POSTOPERATIVE DIAGNOSIS: 1-lumbar degenerative disc disease. 2-lumbar spondylosis with facet arthropathy without myelopathy. 3-lumbar spinal stenosis. PROCEDURE 1. Lumbar epidural steroid injection under fluoroscopic guidance at the L3-4 level. (Fluoroscopy imaging was available in radiology department). ANESTHESIA: Lidocaine 1% 3 and then only. EBL: Minimal PROCEDURE INDICATION: The patient with low back pain and radiculitis symptoms unresponsive to conservative treatment. Fluoroscopy was used to optimize visualization of the needle placement and to maximize safety. PROCEDURE DESCRIPTION / TECHNIQUE: The patient was seen and identified in the preoperative area. Risks, benefits, complications including but not limited to infections ,bleeding ,allergic reaction to the medications ,nerve damage and not complete pain releife , and alternatives were discussed with the patient. The patient agreed to proceed with the procedure and signed the consent, and vital signs were stable. Patient was taken to the OR and time out was completed. The patient was placed in the prone position on procedure table and a pillow was placed under the abdomen to reduce lumbar lordosis. The lumbosacral area was prepped and draped in the usual sterile fashion.ere closely monitored during the procedure. Vital signs was monitered during the entire procedure. Using anterior-posterior fluoroscopy, the L3-4 interlaminar space was identified and the skin over this site was marked and then infiltrated with 1% lidocaine subcutaneously. Subsequently, a 20-gauge Tuohy epidural needle was inserted and advanced toward the epidural space using the ``Loss of resistance technique and guided by AP and lateral fluoroscopy, after negative aspiration for blood and CSF and in the absence of paresthesias. Again after negative aspiration, a 6 ml mixture containing 60 mg of Depo-medrol ( Preservetive Free ), and 2 ml of preservative free Normal Saline, and 2 ml of preservative free lidocaine 1% solution was injected and a washout of epidurogram was seen. Needle was withdrawn intact, skin was cleansed, and bandages were applied. COMPLICATIONS: None DISPOSITION / PLANS: The patient was placed in a supine position and transferred to the recovery area in a stable condition for observation. There was no evidence of lower extremity motor or sensory deficit after the procedure. Patient was discharged from the recovery room after meeting discharge criteria. Home discharge instructions were given to the patient by the staff. The patient was reexamined prior to discharge. The patient will schedule a follow up in the clinic in 2-4 weeks. note= Isovue was not injected because patient had an allergy to iodine
[2023-08-05 10:19] VITALS: RESP 18
[2023-08-05 10:39] VITALS: BP 118/72; PULSE 61
== END 2023-08-05 11:03 | disposition home or self-care (01) ==
LOC: ORPAIN 09:02
PROVIDERS: ATTEND Specialist
DX: M48.061 Spinal stenosis, lumbar region without neurogenic claudication (principal); M51.36 Other intervertebral disc degeneration, lumbar region; M47.816 Spondylosis without myelopathy or radiculopathy, lumbar region; Z91.030 Bee allergy status; Z91.041 Radiographic dye allergy status; Z88.8 Allergy status to other drugs, medicaments and biological substances
CPT/HCPCS: 62323; J1010

== ENCOUNTER → 2023-08-19 | Outpatient (CLI) | payer MEDICARE ==
[2023-08-19 13:32] VITALS: BP 116/79; PULSE 82; RESP 16
--- NOTE | 2023-08-19 14:53 | P.PAINPG ---
PQRS Measure Charge Sheet Comment: HISTORY OF PRESENT ILLNESS: A 73 yr old female presents today w severe and chronic LBP > 1 yr secondary to DDD, spondylosis and facet arthropathy without myelopathy for evaluation s/p VIOLETA L3-L4 #3. Pt states she experienced 40% pain relief x 2 wks s/p procedure. Pt states pain level is provoked at 8 /10 in intensity, constant, localized in the lumbar spine, predominantly axial, achy in character w occasional shooting pain towards the groin. Pain is provoked by over activity. Pain is alleviated by PT x 6 wks which ended in Summer 2022, physician guided home stretches every morning since Summer 2022, manual massage, medications, THC products/ CBD topical, repositioning and rest . Oswestry axial pain score at 26. Again pt had long talk about limited family in the area, how she needs to go to [facility] for surgeries and how pain medication causes constipation ever since she had knee surgery. Will use THC/ CBD products at this time to manage pain. Interventional procedures include VIOLETA L3-L4 x3 Medications include Hope short course, Celebrex REVIEW OF ORGAN SYSTEMS: CONSTITUTIONAL: No fevers or chills. No recent weight loss. NEUROLOGICAL: + numbness and tingling along the distal extremities. No seizure disorders or headaches. MUSCULOSKELETAL: + pain PSYCHIATRIC: Denies current depression or suicidal thoughts. Physical Examinations : Constitutional : Cooperative , not in acute distress . Neurologic : Cranial nerve II to XII intact. No focal neurological deficits. Psychiatric : alert & oriented x 3. Matching mood & appropriate affect. Judgment & insight intact. Musculoskeletal : Cervical Spine Motor strength in the deltoid and biceps: Normal right side. Normal Left side Motor strength biceps and the wrist extensors: Normal right side . Normal left side Motor strength in the triceps muscle: Normal right side. Normal left side Deep tendon reflexes: Normal at the biceps. Normal at Brachioradialis. Normal at triceps Vertebral body tenderness to deep palpation over Cervical facet loading test: positive bilaterally Spurling test: positive bilaterally Neck distraction test: positive bilaterally Deborah sign: positive bilaterally Lumbar spine Motor strength lower extremities ,thigh and legs 5/5 Right side , 5/5 Left side Deep tendon reflexes : Normal Knee Jerk. Normal Ankle Jerk Vertebral body tenderness over L3 Godinez Test positive BL L3-L4 Lumbar facet Loading Test: positive Right / positive Left Range of motion of the lumbar spine Flexion 30 degrees, extension 10 degrees Straight Leg Raise test: Left/ Right positive at degrees Colt test: positive right / positive left. Severe tenderness over the Sacroiliac joint on the Right / Left sides Gaenslen test: positive bilaterally Seated flexion test: positive bilaterally. Sacral spine : Severe tenderness over the Sacroiliac joint: right side / left side Range of motion: Flexion of the lumbar spine <60 degrees Range of motion: Extension of the lumbar spine <20 degrees Gaenslen's Test positive Colt test: positive right side / left side Thigh Thrust Test Sacral Thrust Test Imaging: MRI noncontrast of the lumbar spine from 11/24/2022 reviewed Assessment/ Plan : Lumbar DDD, Moderate L2-L4 spinal stenosis Will manage residual pain and follow up w Dr Cabral on an as needed basis. All questions answered. I have spent greater than 30 minutes on patient care today. Dr Medel was available by phone for the evaluation of this patient. The time was used to review the medical records including relevant urine studies and Prescription history (MAPs), review of the available imaging, evaluation and examination of the patient, coordination of care with the medical staff and if applicable referring physicians, as well as creation of the medical record - Pain Location Lower Back Pharmacological Interventions: Medication PQRS Narrative: Smoking Status Never smoker Narcotic Agreement Date Signed 07/29/23 Hx Alcohol Use (MH) No Home Medications: Ambulatory Orders Dextroamphetamine/Amphetamine [Adderall] 30 mg PO BID 10/14/14 ALPRAZolam [Xanax] 0.25 mg PO BID PRN 03/30/16 Gabapentin [Neurontin] 600 mg PO BID 03/30/16 Minocycline HCl [Minocin] 50 mg PO DAILY 08/21/16 traZODone HCL [Desyrel] 50 mg PO HS PRN #30 tab 09/01/16 Dicyclomine [Bentyl] 10 mg PO TID PRN 7 Days #21 capsule 06/21/23 Celecoxib [CeleBREX] 200 mg PO DAILY 08/04/23 Cyclobenzaprine [Flexeril] 10 mg PO HS PRN 08/04/23 DULoxetine HCL [Cymbalta] 60 tab PO BID 08/04/23 HYDROcodone/APAP 7.5-325MG [Hope 7.5-325] 1 tab PO Q6HR PRN 08/04/23 Metoprolol Succinate (ER) [Toprol Xl] 50 mg PO DAILY 08/04/23 Omeprazole 20 mg PO DAILY 08/04/23 Rosuvastatin Calcium 40 mg PO DAILY 08/04/23 Controlled Substance Measures - Controlled Substance Measures Is patient prescribed a controlled substance at discharge?: No
== END ==
LOC: PNWHC3 11:27
PROVIDERS: ATTEND Specialist
DX: M51.36 Other intervertebral disc degeneration, lumbar region (principal); M48.061 Spinal stenosis, lumbar region without neurogenic claudication; Z88.8 Allergy status to other drugs, medicaments and biological substances; Z91.041 Radiographic dye allergy status; Z91.030 Bee allergy status
CPT/HCPCS: 99211

== ENCOUNTER → 2024-06-14 | Outpatient (CLI) | payer MEDICARE ==
--- NOTE | 2024-06-14 14:47 | XR ---
EXAMINATION TYPE: XR knee complete bilateral DATE OF EXAM: 06/14/2024 2:33 PM COMPARISON: None. CLINICAL INDICATION: Female, 73 years old with history of W19.XXXD, pain, 2 falls within 1 month TECHNIQUE: 3 view(s) obtained bilateral knees. FINDINGS: Left knee: Left knee prosthesis is present. No acute fracture or dislocation evident. No joint effusi on evident. Right knee:Right knee prosthesis is present. No acute fracture or dislocation evident. No joint effus ion evident. Follow up exams of the bilateral knees can be performed as clinically indicated IMPRESSION: 1. No acute osseous abnormalities bilateral knees [facility], Workstation: [facility], 06/14/2024 2:44 PM
== END | disposition home or self-care (01) ==
LOC: RADXRMAIN 14:12
PROVIDERS: ATTEND Internal Medicine
DX: Z96.651 Presence of right artificial knee joint (principal); W19.XXXD Unspecified fall, subsequent encounter